=== PATIENT | male | born 1940 | race Caucasian/White ===

== ENCOUNTER 2018-07-05 19:00 | Inpatient (IN) | payer OTHER ==
[~2018-07-05] VITALS: Ht 175.3 cm; Wt 78.5 kg
[~2018-07-05 19:00] MED LIST: ALTACE 1.25 M1.25 M1 PO; AMARYL1 MG PO; ASPIRIN81 M2 PO; FENOFIBRATE160 MG; FINASTERIDE5 MG PO; FISH OIL 1,0001 EAC5 PO; GLIMEPIRIDE; GLUCOPHAGE500 MG PO; LOPRESSOR 50 MG50 M1 PO; LOVASTAT20; TUMS PO
[2018-07-05 19:06] VITALS: BP 181/88
[2018-07-05] MEDS ORDERED: GLIPIZIDE 10 MG10 MG PO (19:15)
[2018-07-05] MEDS ORDERED: ALTACE10 MG (19:15)
[2018-07-05] MEDS ORDERED: VITAMINC500 PO (19:16)
[2018-07-05] MEDS ORDERED: SIMVASTATIN40 MG PO (19:16)
[2018-07-05 19:42] LABS: ABSOLUTE EOSINOPHILS 0.2 thou/uL (0.0-0.7); ABSOLUTE LYMPHOCYTES 2.2 thou/uL (0.8-5.3); ABSOLUTE MONOCYTES 0.7 thou/uL (0.0-1.2); ABSOLUTE NEUTROPHILS 4.6 thou/uL (1.6-8.1); BASOPHILS 0.5 %; HEMATOCRIT 42.7 % (42.0-52.0); HEMOGLOBIN 14.2 gm/dL (14.0-18.0); LYMPHOCYTES 28.7 %; MCH 29.5 pg (26.0-34.0); MCHC 33.3 g/dL (28.0-37.0); MCV 88.5 fL (80.0-100.0); MONOCYTES 8.8 %; MPV 8.9 fl. (7.2-11.1); NUCLEATED RBCS 0 /100WBC; PLATELET COUNT* 127 thou/uL (150-400); RBC 4.83 mil/uL (4.50-6.00); RDW-CV 15.1 % (10.5-14.5); WBC 7.7 thou/uL (4.0-11.0)
[2018-07-05 19:47] LABS: CALCIUM 8.7 mg/dL (8.5-10.1); CREATININE 0.9 mg/dL (0.6-1.3); POTASSIUM 3.9 mmol/L (3.5-5.1)
[2018-07-05 19:49] LABS: PROTIME 10.7 Seconds (9.20-11.50)
[2018-07-05 19:57] LABS: ALBUMIN 3.3 g/dL (3.4-5.0); TOTAL BILIRUBIN 0.7 mg/dL (<0.1-1.0); TOTAL PROTEIN 6.8 g/dL (6.4-8.2); TROPONIN-I LEVEL 0.11 ng/mL (<0.06)
[2018-07-05 21:08] LABS: INFLUENZA A ANTIGEN None Detected (None Detect); INFLUENZA B ANTIGEN None Detected (None Detect)
[2018-07-05 21:58] LABS: URINE BILIRUBIN NEGATIVE (Negative); URINE BLOOD NEGATIVE (Negative); URINE CLARITY CLEAR; URINE COLOR YELLOW; URINE GLUCOSE-RANDOM NEGATIVE (Negative); URINE KETONES NEGATIVE (Negative); URINE LEUKOCYTES-REFLEX NEGATIVE (Negative); URINE NITRITE-REFLEX NEGATIVE (Negative); URINE PROTEIN NEGATIVE (Negative); URINE UROBILINOGEN 0.2 E.U./dl (0.2-1.0)
[2018-07-06] VITALS (7 sets, daily range): BP systolic 117–160; BP diastolic 66–82
--- NOTE | 2018-07-06 02:27 | NUR ---
PT ADMIT TO ROOM 204 AT 0010. ALERT ORIENTED. STAND AT BS TO VOID WITH ONE PERSON ASSIST. TELEMETRY SHOWS ST. NPO FOR CARDIOLOGY CONSULT. WILL CONTINUE TO MONITOR.
[2018-07-06] MEDS ORDERED: METFORMIN HCL500 MG PO (02:35)
[2018-07-06] MEDS ORDERED: ALEVE220 MG PO (02:39)
[2018-07-06 02:42] LABS: HEMATOCRIT 43.2 % (42.0-52.0); HEMOGLOBIN 14.2 gm/dL (14.0-18.0); MCH 29.7 pg (26.0-34.0); MCV 90.2 fL (80.0-100.0); MPV 9.4 fl. (7.2-11.1); RBC 4.79 mil/uL (4.50-6.00); WBC 6.5 thou/uL (4.0-11.0)
[2018-07-06] MEDS ORDERED: RAMIPRIL2.5 MG PO (02:42)
[2018-07-06] MEDS ORDERED: CINNAMON500 MG PO (02:44)
[2018-07-06] MEDS ORDERED: GARLIC1 EACH PO (02:45)
[2018-07-06 02:58] LABS: ALBUMIN 3.6 g/dL (3.4-5.0); CALCIUM 8.8 mg/dL (8.5-10.1); CREATININE 1.5 mg/dL (0.6-1.3); POTASSIUM 3.7 mmol/L (3.5-5.1); TOTAL BILIRUBIN 0.6 mg/dL (<0.1-1.0)
--- NOTE | 2018-07-06 04:41 | NUR ---
PT HAD HR 130. VSS. [address] METOPROLOL ORDERED.
--- NOTE | 2018-07-06 07:45 | NUR ---
RECIEVED REPORT. ASSUMED CARE OF PT AT 0730. VSS. CARDIAC MONITORING IN PLACE SR. AM ASSESMENT AND VITALS COMPELTED CHARTED. PT ALERT AND ORIENTED. PT ON 2L O2 WITH O2 SAT AT 95% PT REPORTS FEELING BETTER THIS AM. PT DENEIS ANY PAIN OR DISCOMFORT THIS AM. PT IS UP WITH STAND BY ASSITANCE. PT INFORMED OF PLAN OF CARE. CALL [facility] WITHIN REACH. WILL CONTINUE TO MOTNIOR FOR DURAITON OF SHFIT.
--- NOTE | 2018-07-06 11:21 | EKG ---
[place] [address] ELECTROCARDIOGRAM REPORT Name: NATALI RADFORD Room: [address] ADM IN M.R.#: [id number] Admission: 07/05/18 Attend Phys: Shelbi Siddiqi Discharge: Date of : 36 Report #: [id number] THIS REPORT FOR: //name// [facility] ED Test Date: 2018-07-05 Test Time: 19:15:44 Pat Name: NATALI RADFORD Department: Room: [facility] Gender: M Pulper: Belia GREEN : 1940 Requested By: Cammy Arango Order Number: [id number] MD: Pankaj Hayden Measurements Intervals [place] Rate: 91 P: 67 MS: 185 QRS: -5 QRSD: 105 T: 106 QT: 345 QTc: 425 Interpretive Statements Sinus rhythm Ventricular premature complex Anteroseptal infarct, old Borderline repolarization abnormality Compared to ECG 02/07/2012 04:27:36 Left ventricular hypertrophy no longer present Myocardial infarct finding still present Electronically Signed On 07-06-2018 11:21:27 ENVIRONMENTAL SAMPLER by Pankaj Hayden [email or web address] <ELECTRONICALLY SIGNED> By: Pankaj Hayden MD, FACC 07/06/18 1121 14 14 Pankaj Hayden MD, FACC /EPI
--- NOTE | 2018-07-06 11:22 | EKG ---
[place] [address] ELECTROCARDIOGRAM REPORT Name: NATALI RADFORD Room: [address] ADM IN M.R.#: [id number] Admission: 07/05/18 Attend Phys: Shelbi Siddiqi Discharge: Date of : 36 Report #: [id number] THIS REPORT FOR: //name// [facility] Test Date: 2018-07-06 Test Time: 04:19:38 Pat Name: NATALI RADFORD Department: Room: [address] Gender: M Manager Intermediate: I : 1940 Requested By: Bree Swan Order Number: [id number] Reading MD: Pankaj Hayden Measurements Intervals [place] Rate: 139 P: 107 ND: 104 QRS: -12 QRSD: 96 T: 111 QT: 301 QTc: 458 Interpretive Statements Sinus tachycardia with irregular rate Inferior infarct, old Lateral leads are also involved Baseline wander in lead(s) V2 Compared to ECG 02/07/2012 04:27:36 Sinus rhythm no longer present Ventricular premature complex(es) no longer present Left ventricular hypertrophy no longer present Myocardial infarct finding still present Electronically Signed On 07-06-2018 11:21:51 WOOD POLE TREATER by Pankaj Hayden [email or web address] <ELECTRONICALLY SIGNED> By: Pankaj Hayden MD, FACC 07/06/18 1121 0419 0419 Pankaj Hayden MD, FACC /EPI
--- NOTE | 2018-07-06 14:08 | NUR ---
NOTED CARDIOLOGY CONSULT NOTE IN PT'S CHART STATING PT WOULD MAYBE NEED STRESS TEST OR CATH BUT THERE ARE NO ORDERS FOR ANYTHING. PER PULMONARY DR. BACH, FEELS PT IS HAVING CHF EXCAERBATION AND PERFERS TO TRY AND DIURES PT VS THORACENTESIS AT THIS TIME. NO ORDERS FOR DIURETIC MEDICATIONS CURRENTLY. NOTIFIED CARDIOLOGY COPYRIGHT CLERK. WILL CONTINUE TO MOTNIOR.
--- NOTE | 2018-07-06 14:47 | 2DMMODE ---
[place] [address] 2 D/M-MODE ECHOCARDIOGRAM Name: NATALI RADFORD Room: [facility] IN [facility]#: [id number] Admission: 07/05/18 Attend Phys: Bree Swan Discharge: Date of : 36 Date of Service: 07/06/18 1446 Report #: [id number] THIS REPORT FOR: //name// APPROVED REPORT Study performed: 07/06/2018 11:04:27 EXAM: Comprehensive 2D, Doppler, and color-flow Echocardiogram Patient Location: In-Patient Room #: [facility] Status: routine BSA: 1.94 HR: 98 bpm BP: 117/66 mmHg Rhythm: NSR Other Information Study Quality: Good Indications Chest Pain 2D Dimensions IVSd: 12.41 (7-11mm) LVOT Diam: 20.70 (18-24mm) LVDd: 38.18 mm PWd: 13.24 (7-11mm) Ascending Ao: 32.68 (22-36mm) LVDs: 23.19 (25-40mm) Aortic Root: 34.19 mm Volumes Left Atrial Volume (Systole) LA ESV Index: 53.70 mL/m2 Aortic Valve AoV Peak Bola.: 3.54 m/s AO Peak Gr.: 50.02 mmHg LVOT Max P.11 mmHg AO Mean Gr.: 30.30 mmHg LVOT Mean P.23 mmHg LVOT Max V: 0.73 m/s AO V2 VTI: 77.01 cm LVOT Mean V: 0.52 m/s JESSA (VTI): 0.74 cm2 LVOT V1 VTI: 16.84 cm Mitral Valve E/A Ratio: 0.75 MV Decel. Time: 49.73 ms MV E Max Bola.: 0.72 m/[place] [address] 2 D/M-MODE ECHOCARDIOGRAM Name: NATALI RADFORD Room: [address] IN .R.#: [id number] Admission: 07/05/18 Attend Phys: Bree Swan Discharge: Date of : 36 Date of Service: 07/06/18 1446 Report #: [id number] MV PHT: 14.42 ms MVA (PHT): 15.26 cm2 TDI E/Lateral E': 4.80 E/Medial E': 5.54 Medial E' Bola.: 0.13 m/s Lateral E' Bola.: 0.15 m/s Pulmonary Valve PV Peak Bola.: 1.05 m/s PV Peak Gr.: 4.42 mmHg Tricuspid Valve RAP Estimate: 5.00 mmHg TR Peak Gr.: 26.55 mmHg RVSP: 31.00 mmHg PA Pressure: 31.00 mmHg Left Ventricle The left ventricle is normal size. Regional wall motion abnormalities are noted.Apical hypokineis is present. Mild concentric left ventricular hypertrophy. Left ventricular systolic function is normal. The left ventricular ejection fraction is within the normal range. No left ventricle thrombus noted on this study. LVEF is 55-60%. Grade I - abnormal relaxation pattern. Right Ventricle The right ventricle is normal size. The right ventricular systolic function is normal. Atria Left atrium is severely dilated. The right atrium size is normal. Aortic Valve Severe aortic valve sclerosis. No aortic regurgitation is present. Moderate aortic stenosis.Mean gradient 35mmhg Mitral Valve There is mitral annular calcification. Mild mitral regurgitation. No evidence of mitral valve stenosis. Tricuspid Valve The tricuspid valve is normal in structure. Mild tricuspid regurgitation. Mild pulmonary hypertension. Pulmonic Valve The pulmonary valve is normal in structure. There [place] [address] 2 D/M-MODE ECHOCARDIOGRAM Name: NATALI RADFORD Room: [address] IN [facility]#: [id number] Admission: 07/05/18 Attend Phys: Bree Swan Discharge: Date of : 36 Date of Service: 07/06/18 1446 Report #: [id number] valvular regurgitation. Great Vessels The aortic root is normal in size. IVC is normal in size and collapses >50% with inspiration. Pericardium There is no pericardial effusion. <Conclusion> LVEF is 55-60%. Regional wall motion abnormalities are noted.Apical hypokineis is present. Moderate aortic stenosis.Mean gradient 35mmhg Grade I - abnormal relaxation pattern. No evidence of mitral valve stenosis. Mild mitral regurgitation. <ELECTRONICALLY SIGNED> By: Pankaj Hayden MD, FACC 07/06/18 1446 1446 1446 Pankaj Hayden MD, FACC /INF
--- NOTE | 2018-07-06 15:20 | NUR ---
Pt is A&O. Resides at home with his and son. Independent. Pt has a prosthetic shoe. No home o2. Pt has a walker and cane that he can use as needed. Hx of CHCS. No hx of skilled. Goal is home at ok. Following.
[2018-07-06 15:43] LABS: CALCIUM 8.8 mg/dL (8.5-10.1); CREATININE 1.3 mg/dL (0.6-1.3)
--- NOTE | 2018-07-06 17:40 | NUR ---
VSS. CARDIAC MONTIORING IN PLACE SR/ST. PT SLIGHTLY PROGRESSING TOWARDS GOALS. PT REMAINS ON RA-2L ON STAND BY. PT HAS HAD COMPLAINTS OF INCREASED COUGH HE EXPLAINS IS WHAT BROUGHT HIM INTO THE HOSPITAL INITALLY. SPOKE WITH DR. URENA REGARDING SYMPTOMS AND NO LASIX OR DIURETICS ORDERED AND NO ELECTROLYTE PROTOCOL ORDERED. PER DR. URENA HOLDING OFF ON DIURETICS DUE TO PT'S KIDNEY FUNCTION INCREASED. COMMUNICATED THIS WITH PT BUT ENCOURAGED PT TO NOTIFY RN IF SYMPTOMS PERSIST/WORSEN. CARDIOLOGY ORDERED CARDIAC CATH IN AM. IVF TO START AT 0700. PT IS UP WITH STAND BY ASSITANCE. PT INFORMED OF PLAN OF CARE. CALL LIGHT IS WITHIN REACH. WILL CONTINUE TO MONITOR FOR DURAITON OF SHFIT.
[2018-07-06 22:32] LABS: CALCIUM 8.7 mg/dL (8.5-10.1); CREATININE 1.2 mg/dL (0.6-1.3); MAGNESIUM 1.8 mg/dL (1.8-2.4); POTASSIUM 3.9 mmol/L (3.5-5.1)
[2018-07-07] VITALS (11 sets, daily range): BP systolic 100–146; BP diastolic 53–81
--- NOTE | 2018-07-07 02:44 | NUR ---
PT CALLED OUT IN RESPIRATORY DISTRESS. O2 SATS IN THE 80S. SOB LABORED BREATHING. BREATH SOUNDS COURSE WITH CRACKLES. DR GREGG NOTIFIED. ORDERS FOR LASIX 60MG AND BIPAP. RT NOTIFIED OF BIPAP ORDERS.
[2018-07-07 06:14] LABS: ALBUMIN 3.6 g/dL (3.4-5.0); CALCIUM 9.4 mg/dL (8.5-10.1); CREATININE 1.1 mg/dL (0.6-1.3); MAGNESIUM 1.9 mg/dL (1.8-2.4); PHOSPHORUS* 4.7 mg/dL (2.5-4.9); POTASSIUM 3.9 mmol/L (3.5-5.1)
--- NOTE | 2018-07-07 06:49 | CON ---
[address] [address] CONSULTATION Name: NATALI RADFORD Room: [address] IN M.R.#: [id number] Admission: 07/05/18 Attend Phys: Shelbi Siddiqi Discharge: Date of : 36 Report #: [id number] THIS REPORT FOR: //name// CC: Weston Swan DATE OF SERVICE: 07/06/2018 CHIEF COMPLAINT: Shortness of breath, weakness. HISTORY OF PRESENT ILLNESS: The patient is an 78-year-old man who presents with approximately 1 week of heavy cough, minimally productive associated with dyspnea with exertion, orthopnea and mild PND. His ECG on presentation demonstrated a sinus rhythm with dynamic without dynamic ST segment abnormalities. His initial cardiac troponin level was essentially normal with a cardiac troponin level of 0.07. He has never really had these symptoms before, but he has noticed some increasing fatigue over the last several days. He has no associated symptoms of fevers, chills, weight gain or edema. He was given diuretics overnight and his symptoms have improved. He was also treated aggressively with nebulizers. CT scan of the chest was performed, which demonstrated no evidence of pulmonary embolus, but there is evidence of possible central pulmonary hypertension and pleural effusions which are mild to moderate only in size. He does have cardiomegaly noted. PAST MEDICAL HISTORY: Significant for peripheral vascular disease. 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 He has diabetes, hypertension, hyperlipidemia. He has no documented history of heart disease. He has osteoarthritis, sarcoidosis. HOME MEDICATIONS: Include metformin, finasteride, baby aspirin, glipizide 10 mg daily, Zocor 40 mg daily, ramipril 2.5 mg daily, and vitamin C. ALLERGIES: He has no known drug allergies. SOCIAL HISTORY: He is a nonsmoker. He is . REVIEW OF SYSTEMS: GENERAL: No fevers or chills. PULMONARY: Positive shortness of breath. Positive cough, [place] [address] CONSULTATION Name: NATALI RADFORD Room: [address] IN [facility]#: [id number] Admission: 07/05/18 Attend Phys: Shelbi Siddiqi Discharge: Date of : 38 Report #: [id number] CARDIOVASCULAR: Positive dyspnea. No chest pain. No palpitations. NEUROLOGIC: No syncope or seizures. HEMATOLOGIC: No anemia or bleeding disorders. RENAL: No documented history of kidney failure. He presents with renal insufficiency. NEUROLOGIC: There is no record of seizures, numbness, weakness or visual changes. PHYSICAL EXAMINATION: VITAL SIGNS: Blood pressure is 138/71 with a pulse of 97 in a sinus rhythm, temperature is 36.7, respiratory rate 16, O2 sat on 2 liters is 97%. GENERAL: This is a thin elderly male. He is in no apparent distress. HEENT: Eyes: EOMs intact. No facial asymmetry. NECK: Supple. No jugular venous distention. Upstrokes are normal. CARDIOVASCULAR: Regular, heart tones are distant. There is no rub or gallop. LUNGS: Diminished breath sounds. There are no rales. ABDOMEN: Soft, nontender. EXTREMITIES: There is no peripheral edema. MUSCULOSKELETAL: He has postoperative TMA amputation of his left foot. Femoral pulses are normal. Radial pulses are normal. LABORATORY DATA: Electrocardiogram shows sinus rhythm with borderline LVH, Q-waves in anterior precordial leads with poor R-wave progression. Troponin I is 0.07. AST 41, ALT is 47, BUN is 25, creatinine is 1.5. Sodium is 139, potassium is 3.7, chloride is 97. INR is 1.0. Hemoglobin is 14.2. IMPRESSION: 1. Respiratory insufficiency. Etiology of this could be related to underlying bronchitic process versus congestive heart failure, which based on the CT and x-ray findings is concerning. I would gently diurese him. We will check an echocardiogram to assess left ventricular function. If left ventricular function is reduced, he will need either stress testing or diagnostic heart catheterization. 2. Abnormal ECG. There is concern for underlying coronary disease. 3. Peripheral vascular disease. He has numerous cardiovascular risk factors as well. 4. Diabetes mellitus. 5. Acute diastolic congestive heart failure. <ELECTRONICALLY SIGNED> By: Damien Cain MD, FACC 07/07/18 0649 1140 0109Pankaj Hayden MD, FACC /nt
--- NOTE | 2018-07-07 06:53 | NUR ---
PT HAD TOTAL OF 1400ML URINE OUT. ORDERS FOR AM NS BOLUS AND IVF. DR BENTON NOTIFIED. NORMAL SALINE ORDERS DCD.
--- NOTE | 2018-07-07 07:43 | CON ---
[address] [address] CONSULTATION Name: NATALI RADFORD Room: [address] IN M.R.#: [id number] Admission: 07/05/18 Attend Phys: Shelbi Siddiqi Discharge: Date of : 36 Report #: [id number] THIS REPORT FOR: //name// CC: Weston Swan REASON FOR CONSULTATION: Respiratory failure and pleural effusion. HISTORY OF PRESENT ILLNESS: This is an 78-year-old male patient who never smoked before. He initially told me he does not have lung disease; however, when I asked about sarcoidosis, he said "Oh yea, I remember, I had sarcoidosis diagnosed back in the 80s." At that time, he underwent some sort of lung biopsy. He is not sure which form, but it was not an open lung biopsy. He was treated with prednisone for a few months, he is not sure about the duration and he was taken off since 1986. Since then, he had not been on any specific treatment for sarcoidosis. He denied having baseline shortness of breath, cough or symptoms related to sarcoidosis and according to him did not cause him any trouble all these years. Two weeks ago, he started having progressive shortness of breath, especially with exertion and also he reported that he now prefers to sleep on pillows, he gets more short of breath when he lies down. He did not have any fever. He did not have any chills. He did not have any sick contacts. He has no sputum production, although he has some cough. He had no nausea, no vomiting, no headache. No skin changes. He denied any lower extremity edema. He denied any chest pain. He denied any calf tenderness. His cough is so severe that it is causing him rib pain now. He is not known to have any history of congestive heart failure, not on any inhalers, not on any oxygen at home. Also, his and other family members at the bedside, they confirm the history of sarcoidosis, but did not know more details about it. PAST MEDICAL HISTORY: Sarcoidosis as mentioned above, history of hypertension, diabetes mellitus. PAST SURGICAL HISTORY: Bilateral shoulder replacement, left knee replacement, right hip replacement and toes amputation on the left lower extremity. HOME MEDICATIONS: He is on Glucophage, finasteride, aspirin, glipizide, ramipril. ALLERGIES: No known drug allergies. REVIEW OF SYSTEMS: CONSTITUTIONAL: He denied fever to me, although he reported that to admitting physician. He denied any chills. He denied any visual changes, eye pain or [place] [address] CONSULTATION Name: NATALI RADFORD Room: [address] IN M.R.#: [id number] Admission: 07/05/18 Attend Phys: Shelbi Siddiqi Discharge: Date of : 38 Report #: [id number] HEAD AND NECK: He denied any sore throat, nasal discharge, obstruction, postnasal drip. RESPIRATORY: As above. CARDIOVASCULAR: As above. GASTROINTESTINAL: He denied any abdominal pain, nausea, vomiting, diarrhea, change in bowel habits or bleeding from any orifice. GENITOURINARY: He denied any urgency, frequency, hematuria, burning with urination. MUSCULOSKELETAL: He denied any back pain, muscle pain, joint pain, calf tenderness. SKIN: He denied any rash or bruising. NEUROLOGIC: He denied any focal weakness. Denied any tingling. The rest of the review of system was negative. FAMILY HISTORY: Reviewed and nonpertinent to above chief complaint. SOCIAL HISTORY: Never smoked. Does not drink alcohol excessively, does not abuse drugs. PHYSICAL EXAMINATION: VITAL SIGNS: He had been on and off 2 liters oxygen, O2 saturation more than 90%. HEENT: Head normocephalic, atraumatic. Eyes, pupils reactive to light. Oral cavity, moist mucous membrane. External ears look healthy and normal. Nasal cavity patent passages, Mallampati of 2. NECK: Supple. No palpable lymph node. No palpable thyroid. Trachea is central. CHEST: Diminished air movement at the bases. No definite wheezes, no crackles. Symmetrical expansion, nontender. HEART: S1, S2. Faint systolic murmur at left sternal border. ABDOMEN: Benign, lax, nontender, positive bowel sounds. No masses felt. EXTREMITIES: Lower extremity, no edema, no calf tenderness. PSYCHIATRIC: Mood and affect appropriate. Good insight and judgment, slightly anxious. LYMPHATICS: No palpable lymph node. SKIN: Normal for age and race. No rash. LABORATORY DATA: His chest x-ray in the ER showed cardiomegaly with signs of vascular congestion. His CT of the chest did not show PE, showed bilateral pleural effusion with signs of vascular congestion. His white blood count 7.7, hemoglobin 14.2 and platelets of 127. His INR is 1. His creatinine was 0.9, although it is 1.9 this morning. His bicarbonate is 21, chloride of 97. His BNP also was elevated. IMPRESSION: 1. Acute [place] [address] CONSULTATION Name: NATALI RADFORD Room: [address] [facility] IN [facility].#: [id number] Admission: 07/05/18 Attend Phys: Shelbi Siddiqi Discharge: Date of : 36 Report #: [id number] 2. Fluid overload. 3. Pulmonary edema. 4. Bilateral pleural effusion. 5. History of sarcoidosis. The last time he received any treatment was back in the 1980s. The patient with progressive shortness of breath of 2 weeks. It is less likely that it is related to sarcoidosis. The clinical picture is highly consistent with congestive heart failure and pulmonary edema with bilateral pleural effusion and signs of vascular congestion. Unfortunately, he developed acute renal failure with diuresis. No definite consolidation or pneumonia on the chest x-ray or the CT scan, there is some area of atelectasis, most likely compressive atelectasis from pleural effusion. At this point, I would not recommend specific treatment for sarcoidosis. Awaiting Cardiology inputs. He just had an echocardiogram. I do not have the report of the echocardiogram. Nephrology and Cardiology on the case. I would continue weaning his oxygen down. Discussed with the patient and his family in details. Of note, regarding the bilateral pleural effusion, would recommend medical therapy at this point, trying to diurese the patient. However, if he fails to respond to diuresis or his renal function gets worse, may consider temporary relief by thoracentesis. For now, we will hold on the thoracentesis. We will consider repeat imaging in a couple of days. Thank you for the consult. We will follow along with you. <ELECTRONICALLY SIGNED> By: Nicole Reyna MD 07/07/18 0743 1356 [id number] Childs MD /nt
--- NOTE | 2018-07-07 11:51 | CON ---
[address] [address] CONSULTATION Name: NATALI RADFORD Room: [address] IN M.R.#: [id number] Admission: 07/05/18 Attend Phys: Shelbi Siddiqi Discharge: Date of : 38 Report #: [id number] THIS REPORT FOR: //name// CC: Weston Swan DATE OF SERVICE: 07/06/2018 INFECTIOUS DISEASE CONSULTATION ATTENDING PHYSICIAN: Dr. Swan. REASON FOR EVALUATION: Lower respiratory tract infection. HISTORY OF PRESENT ILLNESS: Chart reviewed, patient examined. This is an 78-year-old gentleman with known diabetes mellitus type 2 complicated by vasculopathy, has sarcoidosis as well who was admitted with shortness of breath with associated cough that was wet and was unable to clear secretions. Noted onset for last couple of weeks; however, worsened over the last 3 days. It became difficult terms of dyspneic with minimal exertion. His blood sugars were elevated as well. He denies fevers. Does have some shakes. Denied any significant anorexia. No sinus complaints, no sore throat, no dental pain. Denied any gastrointestinal related complaints including nausea, vomiting, diarrhea, abdominal pain, generalized myalgias, arthralgias, new onset eruptions. He was given a dose of azithromycin. At this point, he is on room air oxygen. Imaging raised question of some bilateral pleural effusions with some infiltrates. ALLERGIES: None known. MEDICATIONS: Include insulin, metoprolol, ipratropium and albuterol inhalers. He was given a dose of azithromycin as well, ceftriaxone. PAST MEDICAL HISTORY: As described above, diabetes mellitus, hypertension, sarcoidosis. PAST SURGICAL HISTORY: Left knee replacement, right hip replacement, bilateral shoulder replacements. SOCIAL HISTORY: Nonsmoker, no ethanol. FAMILY HISTORY: Noncontributory. REVIEW OF SYSTEMS: A 10-point review of systems is unremarkable with the exception [place] [address] CONSULTATION Name: RADFORDNATALI BECK Room: [address] IN [facility]#: [id number] Admission: 07/05/18 Attend Phys: Shelbi Siddiqi Discharge: Date of : 38 Report #: [id number] PHYSICAL EXAMINATION: GENERAL: He is in [id number] distress. Does have intermittent coughing. It is nonproductive, appears somewhat undernourished, chronically ill appearing. VITAL SIGNS: Temperature 98.1, pulse 87, respirations 16, blood pressure 138/71. SKIN: Warm, dry, no rashes. HEENT: Unremarkable. NECK: Supple. LUNGS: Few scattered crackles at the bases posteriorly. HEART: Regular. Borderline tachycardic. I do not appreciate murmur. ABDOMEN: Soft, nontender, nondistended. There is no organomegaly. No peritoneal signs. GENITOURINARY AND RECTAL: Deferred. LABORATORY DATA: Electrolytes: Sodium 139, potassium 3.7, chloride 97, bicarbonate is 21, anion gap of 21, BUN and creatinine 25 and 1.5, glucose of 396. AST of 41, ALT of 47. Albumin is 3.6. Total protein 7.0. Estimated GFR 45. CBC: White count of 6.5, H and H 14.2 and 43.2, platelets of 115. Urinalysis unremarkable. CTA chest PE protocol, no evidence of PE or aortic dissection, mild to moderate sized bilateral pleural effusions with vascular congestion, cardiomegaly, likely congestive heart failure, bibasilar atelectasis without consolidation. Influenza antigen was negative. ASSESSMENT: Dyspnea with associated nonproductive cough. I think the way the evidence probably favors for excess fluid on the basis of congestive heart failure and/or pulmonary edema noted, there is consideration of possible aspiration. I think that would be perhaps helpful both from the diagnostic as well as therapeutic. We will withhold any further antibiotics at this point. Should have antibiotics on board for the next 24 hours to see how he does clinically with diuresis and multifocal approach. <ELECTRONICALLY SIGNED> By: Jonathon Ruano MD 07/07/18 1151 1244 0245Jotila Ruano MD /nt
[2018-07-07 13:41] LABS: BE 1.5 mmol/L (-2 to +3); HCO3 25.7 mmol/L (22.0-26.0); PCO2 VENOUS 39.3 mmHg (41.0-51.0)
[2018-07-07 13:42] LABS: PO2 VENOUS 31.6 mmHg (35.0-45.0)
[2018-07-07 13:43] LABS: BE 1.5 mmol/L (-2 to +3); HCO3 24.2 mmol/L (22.0-26.0); PCO2 33.1 mmHg (35.0-45.0); pH 7.482 (7.340-7.450)
[2018-07-07 13:46] LABS: PO2 58.9 mmHg (75.0-100.0)
--- NOTE | 2018-07-07 17:44 | EKG ---
[place] [address] ELECTROCARDIOGRAM REPORT Name: NATALI RADFORD Room: [address] ADM IN M.R.#: [id number] Admission: 07/05/18 Attend Phys: Shelbi Siddiqi Discharge: Date of : 36 Report #: [id number] THIS REPORT FOR: //name// [facility] Test Date: 2018-07-07 Test Time: 16:14:12 Pat Name: NATALI RADFORD Department: Room: [address] Gender: M Steel Plate Caulker: GENNY : 1940 Requested By: Bill Munson Order Number: [id number] Aaliyah MD: Bill Munson Measurements Intervals [place] Rate: 73 P: 26 SC: 208 QRS: -23 QRSD: 98 T: 83 QT: 529 QTc: 583 Interpretive Statements Sinus rhythm Probable left atrial enlargement Inferior infarct, old Prolonged QT interval Compared to ECG 07/06/2018 04:19:38 atrial fibrillation no longer seen Electronically Signed On 07-07-2018 17:44:16 MEDICAL BILLING AND CODING SPECIALIST by Bill Munson [email or web address] <ELECTRONICALLY SIGNED> By: Bill Munson MD, [facility] 07/07/18 1744 1614 1614 Bill Munson MD, [facility] /EPI
--- NOTE | 2018-07-07 18:40 | NUR ---
ASSUMED CARE OF PT AT 0730. PT REMAINS A&O X4 CALM AND COOPERATIVE. PT HAD A CARDIAC CATH THIS AFTERNOON. HE LEFT THE FLOOR AT 1215 AND RETURNED AT 1545. INSERTION SITE TO RIGHT GROIN IS SUPPLE AND HAS NO DRAINAGE. PT WOKE UP AND WAS CONFUSED AND PULLED HI IV OUT. THIS NURSE PLACE A NEW 22G IN HIS LEFT HAND. POST CATH VS DOCUMENTED AND HAVE BEEN STABLE WNL. PT HAS HAD NO C/O PAIN OR DISTRESS. NURSING WILL CONTINUE TO MONITOR.
[2018-07-08] VITALS: BP 130/55
[2018-07-08 04:00] VITALS: BP 142/67
[2018-07-08 04:34] LABS: HEMATOCRIT 40.5 % (42.0-52.0); HEMOGLOBIN 13.4 gm/dL (14.0-18.0); MCH 29.5 pg (26.0-34.0); MCHC 33.1 g/dL (28.0-37.0); MCV 89.3 fL (80.0-100.0); MPV 9.3 fl. (7.2-11.1); RBC 4.53 mil/uL (4.50-6.00); RDW-CV 15.2 % (10.5-14.5); WBC 10.8 thou/uL (4.0-11.0)
[2018-07-08 04:51] LABS: ANION GAP 9 mmol/L (7-16); BUN 39 mg/dL (7-18); CALCIUM 8.2 mg/dL (8.5-10.1); CHLORIDE 103 mmol/L (98-107); CHOLESTEROL 143 mg/dL (<200); CO2 27 mmol/L (21-32); GLUCOSE 213 mg/dL (70-99); HDL CHOLESTEROL 49 mg/dL (>40); LDL CHOLESTEROL 67 mg/dL (<100); POTASSIUM 4.8 mmol/L (3.5-5.1); SODIUM 139 mmol/L (136-145); TC:HDL 2.9 Ratio (Not establshd); TRIGLYCERIDE 136 mg/dL (<150); VLDL 27 mg/dL (<40)
[2018-07-08 04:56] LABS: SERUM ASSESSMENT CLEAR
--- NOTE | 2018-07-08 06:17 | NUR ---
ASSUMED PT CARE AT 1915 REPORT RECEIVED FROM NURSE. PT IS ALERT, AWAKE ORINETED 4 . VSS , NO PAIN .FAMILY MEMBER AT THE BEDISIDE AND THEY ARE REALLY INVOLVED. PT IS POST CATH AND MYNX IN RIGHT GROIN AREA IS CLEAR, INTACT.NO SWELLING OR PAIN . NICOLE IN PLACE. IV FLUID INFUSING AT 125 PER HOUR ORDERED. PT IS SUPPOSED TO BE ON BEDREST UNTIL 2200 WHICH HAD BEEN FOLLOWED. PT SLEPT WELL DURING NIGHT. MEDICATIONS RECEIVED. GREG CONTINUE TO MONITOR.
[2018-07-08 07:40] VITALS: BP 148/97
--- NOTE | 2018-07-08 09:53 | CON ---
[address] [address] CONSULTATION Name: NATALI RADFORD Room: [address] ADM IN M.R.#: [id number] Admission: 07/05/18 Attend Phys: Shelbi Siddiqi Discharge: Date of : 36 Report #: [id number] THIS REPORT FOR: //name// CC: Weston Swan CONSULTING PHYSICIAN: Dr. Swan. REASON FOR CONSULTATION: Acute kidney injury. 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 He tells he has been getting worse over the past 2 weeks, particularly in the last week he had some productive cough and reports some mild fever at home. He denies any nausea, vomiting or diarrhea. He takes Aleve twice a day and has been doing so for many years for osteoarthritis. He received CT scan of the chest PE protocol with contrast and received Lasix. His admission creatinine was 0.9. It bumped up to 1.5 prompting renal consult. He has no present complaints. He is not requiring any oxygen and he appears to be comfortable. REVIEW OF SYSTEMS: Constitutional, psych, heme, eyes, ENT, respiratory, cardiac, GI, , endocrine, all negative except as documented above. PAST MEDICAL HISTORY: Diabetes, hypertension, history of sarcoidosis reported, history of knee and hip and shoulder replacements. FAMILY HISTORY: No known kidney disease. SOCIAL HISTORY: No tobacco. MEDICATIONS: Reviewed. PHYSICAL EXAMINATION: VITAL SIGNS: Blood pressure is 117/66, pulse 96, temperature 36.6, respirations 22. GENERAL: No acute distress. EYES: Extraocular movements intact. EARS: Externally normal. CARDIOVASCULAR: Regular rate. LUNGS: Diminished breath sounds. ABDOMEN: Soft. MUSCULOSKELETAL: Nontender. PSYCHIATRIC: Awake, alert. LABORATORY DATA: White cell count 6.5, hemoglobin 14.2, platelets 115. Sodium 139, potassium 3.7, chloride 97, bicarbonate 21, BUN 25, creatinine 1.5, [place] [address] CONSULTATION Name: NATALI RADFORD Room: [address] IN [facility]#: [id number] Admission: 07/05/18 Attend Phys: Shelbi Siddiqi Discharge: Date of : 36 Report #: [id number], calcium 8.8, albumin 3.6. ASSESSMENT AND PLAN: 1. Acute kidney injury with admission creatinine of 0.9 up to 1.5 on July 06 in the setting of CTA with 100 mL of contrast, Lasix for pulmonary edema and Aleve twice a day, chronic use while also on ramipril for his high blood pressure. He likely also has pulmonary hypertension suggested by CT scan. UA was okay. Albumin is 3.6. 2. Pulmonary edema. 3. Diabetes. 4. Hypertension. 5. Suspected pulmonary hypertension as described on CT report. PLAN: 1. Echocardiogram has been ordered. This will help determine whether he has any element of reduced systolic function and pulmonary hypertension. 2. He is not requiring any oxygen now. He should not require any further Lasix. Expect renal function will improve without any further doses of Lasix and without any further contrast for NSAIDs. We will follow closely and check labs again in the a.m. Thank you for requesting my opinion in the care and management of this patient. <ELECTRONICALLY SIGNED> By: Tami Mcrae MD 07/08/18 0953 1114 0054Abiludwig Mcrae MD /nt
[2018-07-08 12:00] VITALS: BP 142/66
--- NOTE | 2018-07-08 14:19 | CARD ---
[address] [address] CARDIAC CATH REPORT Name: NATALI RADFORD Room: [address] IN .R.#: [id number] Admission: 07/05/18 Attend Phys: Shelbi Siddiqi Discharge: Date of : 38 Report #: [id number] THIS REPORT FOR: //name// APPROVED REPORT Study performed: 07/07/2018 12:07:40 Patient Details Patient Status: In-Patient Room #: 212 The patient is a 78 year-old male Event Personnel Bill Munson Data Specialist, Yvrose Baltazar RN Warehouse Consultant, Ni Christine Monitor, Evelio Porter Scrub Procedures Performed Art Access - R femoral artery* Ti Access - R femoral vein Right and Left Heart Cath w/or w/o Coronarie [id number] [facility] [address] Place w/wo Plasty Single LAD [id number] Indication Dyspnea, Unstable angina Risk Factors Peripheral Vascular Disease, Hypercholesterolemia, Hypertension Previous Procedures/Diagnoses Previous Vascular Surgery Admission/Lab Medications/Medications given during procedure Glycoprotein IllbIlla Inhibitors, Heparin Unfract. Procedure Narrative The patient was brought electively to the Cardiac Catheterization Laboratory and was prepped and draped in a sterile manner. The right femoral was infiltrated with 2% Lidocaine subcutaneous anesthesia. A Right Heart Catheterization was performed with a 7 Fr. [place]-Mario catheter and pressure were recorded. Cardiac outputs were obtained by the Thermal Dilution method. A 7Fr x 11cm Rachel sheath was inserted into the right femoral artery. Coronary angiography was performed using coronary diagnostic catheters. The right coronary system was accessed and visualized with a 6fr JR 4 catheter. The left coronary system was accessed and visualized with a 6fr JL 4 [place] [address] CARDIAC CATH REPORT Name: NATALI RADFORD Room: [address]#: [id number] Admission: 07/05/18 Attend Phys: Shelbi Siddiqi Discharge: Date of : 38 Report #: [id number] ventricle was accessed and visualized with a 6fr Dual pigtail catheter. Left ventricular/Aortic Valve gradient assessed via catheter pullback. Left ventriculogram was performed in NUNES projection. An aortogram of the ascending aorta was performed. Closure device was deployed with a 6 Fr MynxGrip 6/7F. A hematoma occurred. 7 ethiopian sheath was placed in the right femoral artery. Hematoma that occured after placing the Mynx on the femoral artery was compressed with prolonged manual pressure. Mynx was also placed in the femoral vein. Aortic root injection was performed with a pigtail catheter. Aortic valve was crossed with a glidewire, and a dual lumen pigtail catheter used to measure aortic vavle gradient. Intraoperative Conscious Sedation Sedation start time: 13:09 Case end Time: 15:30 Fentanyl 75 mcg Versed 1 mg Fluoro Time: 11.2 minutes Dose: DAP 370148 cGycm2 1506.86 mGy Contrast Type and Amount: Omnipaque 210 ml Coronary Angiography The patient's coronary anatomy is right dominant. Diagnostic Cath Left Main 50% distal stenosis LAD 90% mid stenosis and apical LAD was chronically occluded and fillled by bridging collaterals Diagonal 1 80% proximal stenosis Circumflex 50% ostial stenosis OM3 70% proximal stenosis Right Coronary 50% proximal and 40% mid stenosis Left Ventriculography The left ventricular ejection fraction is estimated to be 40-45%. Left ventricular wall motion abnormalities are present. There is no mitral insufficiency. No aortic insufficiency noted. Apical akinesis noted. Hemodynamics The right atrial mean pressure is 5 mmHg. The right ventricular pressure is 32/6 mmHg. The pulmonary artery pressure is 29/12 mmHg with a mean of 19 mmHg. The mean pulmonary capillary wedge pressure is 12 mmHg. The aortic pressure is 126/64 mmHg with a mean of 88 mmHg. The left ventricular pressure is 161/12 mmHg [place] [address] CARDIAC CATH REPORT Name: NATALI RADFORD Room: [address] IN [facility]#: [id number] Admission: 07/05/18 Attend Phys: Shelbi Siddiqi Discharge: Date of : 38 Report #: [id number]. The left ventricular end diastolic pressure is 14 mmHg. Pullback from the left ventricle to the aorta revealed a 30 mm gradient across the aortic valve. PaO2 saturation is 62.80 %. Arterial saturation is 92.50 %. The cardiac output using thermo method is 4.22 L/min. The cardiac index using thermo method is 2.18 L/min/m2. The peak gradient across the aortic valve is 30 mmHg. The mean aortic valve gradient is 35.63 mmHg. The aortic valve area is 0.8 cm2. PCI Technique Lesion Anticoagulation was achieved with Heparin. iv aggrastat given Patient was preloaded with Plavix. Percutaneous coronary intervention was performed on the mid left anterior descending artery segment. The lesion stenosis prior to intervention was 90% with FRIEDA 3 flow. A 6F XB LAD 3.5 Guide Catheter was used to engage the ostium. A IG: BMW 190cm Interventional Guidewire was used to cross the lesion. BALLOON DILATION A Balloon catheter Trek RX 2.5 X 8 was inserted and inflated up to 8.00atm for 15seconds. Repeat angiography revealed the following post-dilatation results: 40% stenosis. STENT DEPLOYMENT A drug-eluting stent Xience Eloisa 2.37C11hb was inserted and inflated up to 8.00atm for 9seconds. Repeat angiography revealed the following post-stent deployment results: 0% stenosis. Additional Inflation: 16.00atm for 14seconds. Final angiography reveals 0 % stenosis with FRIEDA 3 flow. Conclusion 1. ef 40-45% with apical akinesis 2. moderate aortic stenosis 3. 90% mid lad which was chronically occluded distally 4. 80% 1st diagonal stenosis, and 70% 3rd marginal stenosis 5. successful placement of a stent in the mid lad Recommendations Cardiac Rehabilitation Referral [facility] [address] [address] CARDIAC CATH REPORT Name: NATALI RADFORD Room: [address] IN M.R.#: [id number] Admission: 07/05/18 Attend Phys: Shelbi Siddiqi Discharge: Date of : 38 Report #: [id number] Medications Administered Clopidogrel <ELECTRONICALLY SIGNED> By: Bill Munson MD, FACC 07/08/18 1419 141 1419Dajack Munson MD, FACC /INF
[2018-07-08 16:50] VITALS: BP 148/65
--- NOTE | 2018-07-08 17:30 | EKG ---
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1940 Requested By: Bill Munson Order Number: [id number] Aaliyah MD: Damien Cain Measurements Intervals [place] Rate: 70 P: 40 ND: 196 QRS: -20 QRSD: 101 T: 119 QT: 504 QTc: 544 Interpretive Statements Sinus rhythm Borderline left axis deviation Borderline repolarization abnormality Prolonged QT interval Compared to ECG 07/07/2018 16:14:12 Myocardial infarct finding no longer present Electronically Signed On 07-08-2018 17:29:56 PROGRAM DIRECTOR/AIR PERSONALITY by Damien Cain [email or web address] <ELECTRONICALLY SIGNED> By: Damien Cain MD, FACC 07/08/18 1729 5 5 Damien Cain MD, [facility] /EPI
--- NOTE | 2018-07-08 17:44 | NUR ---
ASSESSMENT COMPLETED REFER TO COMPUTER CHARTING. BILINGUAL RESEARCH INTERVIEWER TRACKING SR. PATIENT RESTING IN BED REPORTING NO PAIN, NAUSEA OR SHORTNESS OF AIR. BED IN LOW AND LOCKED POSITION. CALL LIGHT WITHIN REACH. FAMILY AT BEDSIDE. IV SALINE LOCKED. ON 2 LITERS VIA NASAL CANNULA. WILL CONTINUE TO MONITOR THIS SHIFT.
[2018-07-08 20:00] VITALS: BP 133/55
[2018-07-09] VITALS: BP 133/67
--- NOTE | 2018-07-09 03:08 | NUR ---
PATIENT RESTED IN BED, NO ACUTE CHANGES. PATIENT DID NOT SHOW SIGNS OF SOA. PATIENT DID NOT SHOW SIGNS OF DISTRESS. FALL PRECAUTIONS IN PLACE, CALL LIGHT WITH IN REACH, HOURLY ROUNDING OBSERVED. PATIENT DID NOT COMPLAIN OF CHEST PAIN.
[2018-07-09 04:00] VITALS: BP 117/67
[2018-07-09 08:18] VITALS: BP 121/48
[2018-07-09] MEDS ORDERED: VENTOLIN HFA INH8 GM INH (08:39)
[2018-07-09] MEDS ORDERED: CEFUROXIME500 MG PO (08:39)
[2018-07-09] MEDS ORDERED: BENZONATATE100 MG PO (08:39)
[2018-07-09] MEDS ORDERED: SORINE 80 MG TA80 M1 PO (08:39)
[2018-07-09] MEDS ORDERED: PREDNISONE 10 M10 MG PO (08:39)
[2018-07-09] MEDS ORDERED: CLOPIDOGREL75 MG PO (08:46)
[2018-07-09] MEDS ORDERED: NITROGLYCERIN0.4 MG SUBLING (11:41)
[2018-07-09 12:33] VITALS: BP 136/66
--- NOTE | 2018-07-09 15:13 | EKG ---
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1940 Requested By: Bill Munson Order Number: [id number] Aaliyah MD: Bill Munson Measurements Intervals [place] Rate: 67 P: 39 SD: 199 QRS: 4 QRSD: 101 T: -65 QT: 531 QTc: 561 Interpretive Statements Sinus rhythm Borderline repol abnormality, diffuse leads Prolonged QT interval Compared to ECG 07/08/2018 08:16:32 No significant changes Electronically Signed On 07-09-2018 15:12:52 BRANCH COORDINATOR by Bill Munson [email or web address] <ELECTRONICALLY SIGNED> By: Bill Munson MD, [facility] 07/09/18 1512 1303 1303 Bill Munson MD, [facility] /EPI
== END 2018-07-09 13:17 | disposition home or self-care (01) | DRG 246 ==
LOC: M.ERS 19:00 → M.TBA-ER 20:57 → M.2W 20:57
PROVIDERS: Emergency Medicine; Internal Medicine; Internal Medicine Cardiovascular Disease; Internal Medicine Nephrology; ADMIT Internal Medicine
DX: I21.A1 Myocardial infarction type 2 (principal); I50.31 Acute diastolic (congestive) heart failure; J96.01 Acute respiratory failure with hypoxia; J18.9 Pneumonia, unspecified organism; N17.9 Acute kidney failure, unspecified; I25.110 Atherosclerotic heart disease of native coronary artery with unstable angina pectoris; Z96.641 Presence of right artificial hip joint; Z96.652 Presence of left artificial knee joint; Z96.612 Presence of left artificial shoulder joint; Z96.611 Presence of right artificial shoulder joint; E87.70 Fluid overload, unspecified; E11.51 Type 2 diabetes mellitus with diabetic peripheral angiopathy without gangrene; E78.5 Hyperlipidemia, unspecified; M19.90 Unspecified osteoarthritis, unspecified site; I35.0 Nonrheumatic aortic (valve) stenosis; I11.0 Hypertensive heart disease with heart failure; J20.8 Acute bronchitis due to other specified organisms; J45.909 Unspecified asthma, uncomplicated; I65.29 Occlusion and stenosis of unspecified carotid artery; Z89.432 Acquired absence of left foot; Z79.899 Other long term (current) drug therapy

== ENCOUNTER → 2018-08-03 | Outpatient (CLI) | payer OTHER ==
[~2018-08-03] MED LIST changes: +ALEVE220 MG PO; +ALTACE10 MG; +BENZONATATE100 MG PO; +CEFUROXIME500 MG PO; +CINNAMON500 MG PO; +CLOPIDOGREL75 MG PO; +GARLIC1 EACH PO; +GLIPIZIDE 10 MG10 MG PO; +METFORMIN HCL500 MG PO; +NITROGLYCERIN0.4 MG SUBLING; +PREDNISONE 10 M10 MG PO; +RAMIPRIL2.5 MG PO; +SIMVASTATIN40 MG PO; +SORINE 80 MG TA80 M1 PO; +VENTOLIN HFA INH8 GM INH; +VITAMINC500 PO
== END ==
LOC: M.CT 09:30
DX: I65.23 Occlusion and stenosis of bilateral carotid arteries (principal)

== ENCOUNTER 2018-08-22 21:10 | Emergency (ER) | payer OTHER ==
[~2018-08-22] VITALS: Ht 175.3 cm; Wt 74.8 kg
[2018-08-22 21:40] LABS: ABSOLUTE EOSINOPHILS 0.1 thou/uL (0.0-0.7); ABSOLUTE LYMPHOCYTES 1.8 thou/uL (0.8-5.3); ABSOLUTE MONOCYTES 0.6 thou/uL (0.0-1.2); ABSOLUTE NEUTROPHILS 3.6 thou/uL (1.6-8.1); BASOPHILS 0.4 %; EOSINOPHILS 2.3 %; HEMATOCRIT 37.6 % (42.0-52.0); HEMOGLOBIN 12.6 gm/dL (14.0-18.0); LYMPHOCYTES 29.1 %; MCH 30.1 pg (26.0-34.0); MCHC 33.6 g/dL (28.0-37.0); MCV 89.6 fL (80.0-100.0); MONOCYTES 9.2 %; MPV 8.8 fl. (7.2-11.1); NUCLEATED RBCS 0 /100WBC; PLATELET COUNT* 110 thou/uL (150-400); RBC 4.19 mil/uL (4.50-6.00); RDW-CV 15.3 % (10.5-14.5); WBC 6.1 thou/uL (4.0-11.0)
[2018-08-22 21:50] LABS: CALCIUM 8.6 mg/dL (8.5-10.1); CREATININE 1.1 mg/dL (0.6-1.3); POTASSIUM 3.9 mmol/L (3.5-5.1)
[2018-08-22 22:01] LABS: ALBUMIN 3.3 g/dL (3.4-5.0); MAGNESIUM 1.6 mg/dL (1.8-2.4); TOTAL BILIRUBIN 0.4 mg/dL (<0.1-1.0); TOTAL PROTEIN 6.6 g/dL (6.4-8.2); TROPONIN-I LEVEL 0.08 ng/mL (<0.06)
[2018-08-23] MEDS ORDERED: LASIX 40 MG TAB40 M2 PO (00:03)
[2018-08-23] MEDS ORDERED: KLOR-CON 1010 MEQ PO (00:03)
[2018-08-23] MEDS ORDERED: MEDROLDOSEPACK PO (00:03)
[2018-08-23 00:15] VITALS: BP 156/71
[2018-08-23 01:34] LABS: INFLUENZA A ANTIGEN None Detected (None Detect); INFLUENZA B ANTIGEN None Detected (None Detect)
--- NOTE | 2018-08-23 12:48 | EKG ---
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1940 Requested By: Shanita Worley Order Number: [id number] MD: Damien Cain Measurements Intervals [place] Rate: 76 P: 6 [place]: 174 QRS: -20 QRSD: 94 T: 77 QT: 449 QTc: 505 Interpretive Statements Sinus rhythm Borderline left axis deviation Borderline repolarization abnormality Prolonged QT interval Compared to ECG 07/09/2018 13:03:09 No significant changes Electronically Signed On 08-23-2018 12:47:47 ELEMENTARY SUPERVISOR by Damien Cain [email or web address] <ELECTRONICALLY SIGNED> By: Damien Cain MD, [facility] 08/23/18 1247 14 Damien Cain MD, FACC /EPI
== END 2018-08-23 00:15 | disposition home or self-care (01) ==
LOC: M.ERS 21:10
PROVIDERS: Nurse Practitioner Family
DX: I11.0 Hypertensive heart disease with heart failure (principal); I50.9 Heart failure, unspecified; J20.9 Acute bronchitis, unspecified; E11.9 Type 2 diabetes mellitus without complications; Z96.652 Presence of left artificial knee joint; Z96.642 Presence of left artificial hip joint

== ENCOUNTER 2018-08-31 07:10 | Inpatient (IN) | payer OTHER ==
[~2018-08-31] VITALS: Ht 152.4 cm; Wt 83.0 kg
[2018-08-31] VITALS (10 sets, daily range): BP systolic 100–147; BP diastolic 40–77
[~2018-08-31 07:10] MED LIST changes: +KLOR-CON 1010 MEQ PO; +LASIX 40 MG TAB40 M2 PO; +MEDROLDOSEPACK PO
--- NOTE | 2018-08-31 18:28 | NUR ---
PATIENT ADMITTED TO THE ICU AT 1730. AOX4. PLEASANT. COOPERATIVE. FAMILY AT BEDSIDE. ADMISSION HISTORY AND ASSESSMENT COMPLETED. RATES PAIN AT A 3-4/1O IN NECK, WHICH IS ACHY. DENIES THE NEEDS FOR PAIN MEDICATION. DENIES NAUSEA/SOB. INCISION TO RIGHT SIDE OF NECK CLOSED WITH DERMABOND. MINOR SWELLING TO TOP PORTION NOTED, BRUISING. TRACING NSR ON AVICULTURIST. TRANSFERED TO UNIT ON NEOSYNEPHRINE. DISCONTINUED AT 1800. MAINTAINING NORMAL SYSTOLIC/MAP. PATIENT GIVEN CLEAR LIQUID TRAY. DENIES FURTHER NEEDS FROM NURSING AT THIS TIME.
--- NOTE | 2018-09-01 03:50 | NUR ---
ARTERIAL LINE DC'D AT THIS TIME. NO HEMATOMA, PRESSURE HELD X10 MINUTES. PT. NEEDS TO HAVE BOWEL MOVEMENT, UP TO BEDSIDE COMMODE STAND BY ASSIST. WILL CONTINUE TO MONITOR.
[2018-09-01 04:00] VITALS: BP 104/52
[2018-09-01 05:00] VITALS: BP 107/49
[2018-09-01 06:01] VITALS: BP 84/55
--- NOTE | 2018-09-01 06:29 | NUR ---
PT. PROGRESSING TOWARDS GOALS. BP'S REMAIN STABLE, ART LINE DC'D. UP TO BEDSIDE COMMODE STAND BY ASSIST. ADEQUATE URINE OUTPUT. HAS DENIED PAIN THROUGHOUT SHIFT. SINUS RHYTHM/BRADYCARDIC AT TIMES. PROGRESSING TOWARDS DISCHARGE GOALS, WILL CONTINUE TO MONITOR.
--- NOTE | 2018-09-01 07:47 | OP ---
[facility] [address] [place] [address] OPERATIVE REPORT Name: NATALI RADFORD Room: [address] IN M.R.#: [id number] Admission: 08/31/18 Attend Phys: Miranda Brown Discharge: Date of : 38 Report #: [id number] THIS REPORT FOR: //name// CC: Pop Sim DATE OF SERVICE: 08/31/2018 PREOPERATIVE DIAGNOSIS: Asymptomatic high-grade right carotid artery stenosis. POSTOPERATIVE DIAGNOSIS: Asymptomatic high-grade right carotid artery stenosis. OPERATION: 1. Right carotid endarterectomy with bovine pericardial patch angioplasty. 2. Completion intraoperative duplex. SURGEON: Pop Steiner DO. MONTESSORI TEACHER: DEBBIE Hinds. ANESTHESIA: General. ESTIMATED BLOOD LOSS: 250 mL. FLUIDS: A liter of crystalloid. URINE OUTPUT: None. SPECIMENS: Right carotid plaque. IMPLANTS: A 0.8 x 8 bovine pericardial patch in the right carotid artery. FINDINGS: He had a heavily calcified about 90% stenosis in the right carotid artery, this endarterectomized well. Completion intraoperative duplex demonstrated no intraluminal defects and good flow through the external and continuous diastolic flow through the internal carotid artery. CLINICAL HISTORY: The patient is an 78-year-old male who was incidentally found to have a high-grade right carotid artery stenosis. This was confirmed with duplex and CT angiography. It was recommended for right carotid endarterectomy for stroke risk reduction. He does have a high-grade contralateral stenosis as well, probably 80%. DESCRIPTION OF PROCEDURE: After informed consent was obtained, the patient was taken to the operating room and placed on the OR bed in [place] [address] OPERATIVE REPORT Name: NATALI RADFORD Room: [address] IN .R.#: [id number] Admission: 08/31/18 Attend Phys: Miranda Brown Discharge: Date of : 38 Report #: [id number] was administered general anesthesia by the anesthesia team. Right neck was prepped and draped in the usual sterile fashion. A full timeout was performed identifying correct patient and procedure. Next, a longitudinal incision made along the anterior border of sternocleidomastoid. Dissection was carried down through skin and subcutaneous tissue both sharply with electrocautery. The facial vein was identified and was circumferentially mobilized, ligated between 2-0 silk ties and divided. We then dissected out the common carotid artery, controlled this circumferentially with umbilical tape and Rumel tourniquet. I then dissected out the superior thyroid artery and external carotid artery, controlled with Silastic vessel loop in Wills fashion. I then dissected out the distal internal carotid artery and controlled this with Silastic vessel loop as well. I then administered 8000 units of intravenous heparin. This allowed to circulate for 3 minutes and then sequentially clamped the internal followed by the external and common carotid arteries. I then made a longitudinal arteriotomy, extended with Wills scissors on the normal internal carotid artery and common carotid artery. I then placed a 12-Kiswahili [place] shunt in standard fashion. Doppler interrogation confirmed flow through the shunt. I then performed endarterectomy with eversion endarterectomy of the external carotid artery, tailored to good distal endpoint on the internal carotid artery and freed of all intimal debris. I then performed a patch angioplasty with bovine pericardial patch with running 6-0 Prolene suture. Prior to completion of the suture line, the shunt was removed and the carotid was allowed to fore and backbleed. I then flushed with heparinized saline. I then completed the patch, restored flow first up the external carotid artery and after several heartbeats in the internal carotid artery. I then performed a completion intraoperative duplex. Again this demonstrated no intraluminal defects and good flow through the external and continuous diastolic flow through the internal carotid artery. Satisfied with the result, the heparin was then partially reversed with 50 mg of protamine. Once hemostasis was ensured, and the wound was irrigated with antibiotic solution, this was closed in layers with 2-0 and 3-0 Vicryl. The skin and subcutaneous tissue was anesthetized with Marcaine anesthetic. The skin was closed with Monocryl and Dermabond was applied. All sponge, sharp and instrument counts were reported as correct x 2. He was extubated and awakened in the operating room, neurologically intact, moving upper and lower extremities appropriately to command. He was then transferred to recovery room in stable condition. <ELECTRONICALLY SIGNED> By: Pop Steiner DO 09/01/18 0747 1504 1545Ary Steiner DO /nt
[2018-09-01 08:35] LABS: ABSOLUTE MONOCYTES 0.8 thou/uL (0.0-1.2); ABSOLUTE NEUTROPHILS 6.4 thou/uL (1.6-8.1); BASOPHILS 0.1 %; EOSINOPHILS 0.1 %; HEMATOCRIT 35.6 % (42.0-52.0); LYMPHOCYTES 22.3 %; MCH 30.2 pg (26.0-34.0); MCHC 33.8 g/dL (28.0-37.0); MCV 89.5 fL (80.0-100.0); MONOCYTES 8.2 %; NUCLEATED RBCS 0 /100WBC; PLATELET COUNT* 114 thou/uL (150-400); POLYS 69.3 %; RBC 3.98 mil/uL (4.50-6.00); RDW-CV 15.7 % (10.5-14.5); WBC 9.2 thou/uL (4.0-11.0)
[2018-09-01 09:00] VITALS: BP 111/51
--- NOTE | 2018-09-01 10:30 | NUR ---
Pt admitted for carotid endarterectomy yesterday, states is feeling fine and wants to go home today. Pt lives with his , has been active and indep. Pt denies any discharge needs.
[2018-09-01 10:45] VITALS: BP 111/51
--- NOTE | 2018-09-01 13:05 | NUR ---
PT DISCHARGED HOME. COPY OF DISCHARGE INSTRUCTIONS TO PT AND WITH EXPLAINATION. BOTH VERBALIZED UNDERSTANDING. IV ACCESS X2 REMOVED. PT TOOK ALL BELONGINGS.
--- NOTE | 2018-09-03 15:15 | PATH ---
[facility] [address] [place] [address] PATHOLOGY RPT PROCEDURE Name: RADFORDALEKS KIRAN Room: [address] IN M.R.#: [id number] Admission: 08/31/18 Date of : 36 Discharge: 09/01/18 Report #: [id number] Path Case #: [id number] [facility] Accession Number: [id number] . 01 Material submitted: . RIGHT CAROTID PLAQUE . 01 Clinical history: . Pre-op diagnosis: Bilateral carotid stenosis Post-op diagnosis: Right carotid stenosis . 02 Diagnosis: Right carotid plaque: - Fibrointimal atherosclerotic plaque with prominent calcification. (BONNIE:ernestina; 09/02/2018) QMS/09/02/2018 . 02 Electronically signed: . Moncho Dowling MD, Pathologist NPI- [id number] . 01 Gross description: . The specimen is received in formalin, labeled "Aleks Radford, right carotid plaque". Received are two segments of pale rowan, partially calcified tissue measuring 3.0 x 1.6 x 0.7 cm in aggregate dimensions. The specimen is submitted representatively in cassette A1, following light decalcification. (CAA; 09/01/2018) QAC/QAC . 02 Pathologist provided ICD-10: I65.21 . 02 CPT . 824855, 090400 Specimen Comment: A courtesy copy of this report has been sent to Specimen Comment: [phone], , . Specimen Comment: Report sent to ,DR GREGG / DR TAYLOR Specimen Comment: A duplicate report has been generated due to demographic updates. Performed at: 01 [facility] [address], [place], [place] [id number] MD Josh Gresham MD Phone: [phone] Performed at: [address] [place] [address] [address], [place], [place] [id number] MD Moncho Dowling MD Phone: [phone]
== END 2018-09-01 13:45 | disposition home or self-care (01) | DRG 38 ==
LOC: M.PRE 07:10 → M.TBA 11:01 → M.ICU 11:01 → M.PRE 15:44 → M.ICU 17:28 → M.TBA 17:28 → M.ICU 09-01 13:45
PROVIDERS: ADMIT Internal Medicine
PROC: 03CK0ZZ Extirpation of Matter from Right Internal Carotid Artery, Open Approach (ICD-10-PCS; principal; 2018-08-31)
PROC: 03UK0KZ Supplement Right Internal Carotid Artery with Nonautologous Tissue Substitute, Open Approach (ICD-10-PCS; principal; 2018-08-31)
DX: I65.21 Occlusion and stenosis of right carotid artery (principal); R71.0 Precipitous drop in hematocrit; Z96.641 Presence of right artificial hip joint; Z96.651 Presence of right artificial knee joint; Z96.612 Presence of left artificial shoulder joint; Z96.611 Presence of right artificial shoulder joint; E11.9 Type 2 diabetes mellitus without complications; I50.9 Heart failure, unspecified; I10 Essential (primary) hypertension; I95.9 Hypotension, unspecified; Z79.899 Other long term (current) drug therapy

== ENCOUNTER 2018-11-19 07:01 | Inpatient (IN) | payer OTHER ==
[2018-11-19] VITALS (8 sets, daily range): BP systolic 95–161; BP diastolic 53–79
[~2018-11-19] VITALS: Ht 175.3 cm; Wt 73.0 kg
[~2018-11-19 07:01] MED LIST changes: +FUROSEMIDE 40 M40 M1 PO
[2018-11-19 12:26] LABS: HEMATOCRIT 38.4 % (42.0-52.0); MCH 29.1 pg (26.0-34.0); MCHC 33.9 g/dL (28.0-37.0); MCV 85.6 fL (80.0-100.0); RBC 4.49 mil/uL (4.50-6.00); RDW-CV 15.2 % (10.5-14.5); WBC 5.3 thou/uL (4.0-11.0)
[2018-11-19 12:31] LABS: CREATININE 0.9 mg/dL (0.6-1.3); POTASSIUM 4.4 mmol/L (3.5-5.1)
--- NOTE | 2018-11-19 18:59 | NUR ---
PT VSS, SR ON THE MONITOR ON 3L PER NC, ART LINE IN L WRIST. PT NECK IS CDI WITH MINIMAL BRUISING AT THIS TIME, ICE PLACED ON THE SITE. PT TOLERATING CLD AT THIS TIME WITH NO COMPLICATIONS. WILL HAVE PT SIGN PAPERWORK AND PASS ON TO PACK MASTER
[2018-11-20] VITALS (13 sets, daily range): BP systolic 88–134; BP diastolic 41–56
--- NOTE | 2018-11-20 06:25 | NUR ---
PT IS STABLE WITH NO BLEEDING NOTED.ROOM AIR WAS TOLERATED WHEN AWAKE. PUT TO O2 AT 2LPM WHEN ASLEEP. CLONIDINE GIVEN AT 2315H THEN BP WAS WITHIN NORMAL. NICOLE CATH NOT INSERTED, PT VOID FREELY.
--- NOTE | 2018-11-20 08:39 | OP ---
[facility] [place] [address] [place] [address] OPERATIVE REPORT Name: NATALI RADFORD Room: [address] IN M.R.#: [id number] Admission: 11/19/18 Attend Phys: Miranda Brown Discharge: Date of : 36 Report #: [id number] THIS REPORT FOR: //name// CC: Pop Sim DATE OF SERVICE: 11/19/2018 PREOPERATIVE DIAGNOSIS: Asymptomatic high-grade left carotid artery stenosis. POSTOPERATIVE DIAGNOSIS: Asymptomatic high-grade left carotid artery stenosis. OPERATIONS: 1. Left carotid endarterectomy with bovine pericardial patch angioplasty. 2. Completion intraoperative duplex. SURGEON: Pop Steiner DO. HOUSEKEEPING/LAUNDRY: DEBBIE Hinds. ANESTHESIA: General. ESTIMATED BLOOD LOSS: 200 mL. FLUIDS: Crystalloid. URINE OUTPUT: None. SPECIMENS: Left carotid plaque. IMPLANTS: A 0.8 x 8 bovine pericardial patch in the left carotid artery. FINDINGS: A heavily calcified, approximately 80% stenosis of the left carotid bifurcation. This endarterectomized well. Completion intraoperative duplex demonstrated no intraluminal defects and good flow through the external and continuous diastolic flow through the internal carotid artery. He woke up neurologically intact, moving upper and lower extremities appropriately to command. CLINICAL HISTORY: The patient is an 78-year-old man with known asymptomatic high-grade carotid artery stenosis, who previously underwent a right carotid endarterectomy and is now here for left carotid endarterectomy for stroke risk reduction. DETAILS OF PROCEDURE: After informed consent was obtained, [place] [address] OPERATIVE REPORT Name: NATALI RADFORD Room: [address] IN .R.#: [id number] Admission: 11/19/18 Attend Phys: Miranda Brown Discharge: Date of : 36 Report #: [id number] taken to the operating room and placed on the OR bed in supine position. He was administered general anesthesia by the anesthesia team. Left neck was prepped and draped in the usual sterile fashion. A full timeout was performed identifying correct patient and procedure. Next, a longitudinal incision was made along the anterior border of the sternocleidomastoid. Dissection was carried down through skin and subcutaneous tissues, both sharp and electrocautery. The platysma was divided. The facial vein was identified. It was ligated between 2-0 silk ties and divided. The proximal common carotid artery was circumferentially dissected free and controlled with an umbilical tape and Rumel tourniquet. I then dissected out the external carotid and superior thyroid arteries, controlled with Silastic vessel loops in Wills fashion. I then dissected out the distal internal carotid artery as a soft location, controlled with Silastic vessel loop as well. I then administered 8000 units of intravenous heparin. This was allowed to circulate for 3 minutes. I then sequentially clamped the internal, followed by the external common carotid arteries. I made a longitudinal arteriotomy, extended onto a normal common carotid artery and normal internal carotid artery and placed a 12-Frisian [place] shunt in standard fashion and Doppler interrogation confirmed flow through the shunt. I then performed a standard endarterectomy with eversion endarterectomy of the external carotid artery, tailored to good distal endpoint in the internal carotid artery. I then freed up all intimal debris. I flushed with heparinized saline. I then performed a patch angioplasty with bovine pericardial patch and running 6-0 Prolene suture. Prior to completion of the suture line, a shunt was removed. The artery was allowed to fore and backbleed and then flushed with heparinized saline. I then completed the patch, restored flow first up the external carotid and after several heartbeats to the internal carotid artery. I then performed the completion intraoperative duplex, again demonstrated no intraluminal defects and good flow through the external and continuous diastolic flow through the internal carotid artery. Satisfied with the result, the heparin was then partially reversed with 50 mg of protamine. Once hemostasis was ensured, the wound was irrigated with antibiotic solution. The wound was then closed in layers with 2-0 and 3-0 Vicryl, 4-0 Monocryl on the skin and Dermabond was applied. All sponge, sharp and instrument counts reported as correct x 2. He was extubated in the operating room, neurologically intact, moving upper and lower extremities appropriately, then taken to the recovery room in stable condition. <ELECTRONICALLY SIGNED> By: Pop Steiner DO 11/20/18 0839 1500 1951Ary Steiner DO /nt
--- NOTE | 2018-11-20 12:52 | NUR ---
PATIENT GIVEN DISCHARGE INSTRUCTIONS WITH AND DAUGHTER PRESENT. DENIED QUESTIONS. PATIENT DISCHARGED BY PRIVATE VECHILE AT 1250.
== END 2018-11-20 12:50 | disposition home or self-care (01) | DRG 38 ==
LOC: M.PRE 07:01 → M.ICU 11:01 → M.TBA 11:01 → M.PRE 11:13 → M.ICU 17:51
PROVIDERS: Surgery; ADMIT Internal Medicine
PROC: 03UN0KZ Supplement Left External Carotid Artery with Nonautologous Tissue Substitute, Open Approach (ICD-10-PCS; principal; 2018-11-19)
PROC: 03CN0ZZ Extirpation of Matter from Left External Carotid Artery, Open Approach (ICD-10-PCS; principal; 2018-11-19)
DX: I65.22 Occlusion and stenosis of left carotid artery (principal); J98.11 Atelectasis; I25.10 Atherosclerotic heart disease of native coronary artery without angina pectoris; I48.91 Unspecified atrial fibrillation; M19.90 Unspecified osteoarthritis, unspecified site; E11.51 Type 2 diabetes mellitus with diabetic peripheral angiopathy without gangrene; I10 Essential (primary) hypertension; I35.0 Nonrheumatic aortic (valve) stenosis; Z79.899 Other long term (current) drug therapy; Z79.82 Long term (current) use of aspirin; Z79.84 Long term (current) use of oral hypoglycemic drugs; Z89.422 Acquired absence of other left toe(s); Z98.42 Cataract extraction status, left eye; Z98.41 Cataract extraction status, right eye

== ENCOUNTER 2018-11-21 20:35 | Observation (INO) | payer OTHER ==
[~2018-11-21] VITALS: Ht 175.3 cm; Wt 73.0 kg
[2018-11-21 20:46] VITALS: BP 192/93
[2018-11-21 21:11] LABS: ABSOLUTE EOSINOPHILS 0.2 thou/uL (0.0-0.7); ABSOLUTE LYMPHOCYTES 1.8 thou/uL (0.8-5.3); ABSOLUTE MONOCYTES 0.8 thou/uL (0.0-1.2); ABSOLUTE NEUTROPHILS 3.7 thou/uL (1.6-8.1); BASOPHILS 0.4 %; EOSINOPHILS 2.7 %; HEMATOCRIT 37.8 % (42.0-52.0); HEMOGLOBIN 12.6 gm/dL (14.0-18.0); LYMPHOCYTES 28.1 %; MCH 28.8 pg (26.0-34.0); MCHC 33.3 g/dL (28.0-37.0); MCV 86.3 fL (80.0-100.0); MONOCYTES 11.8 %; MPV 9.1 fl. (7.2-11.1); NUCLEATED RBCS 0 /100WBC; PLATELET COUNT* 126 thou/uL (150-400); RBC 4.38 mil/uL (4.50-6.00); RDW-CV 15.5 % (10.5-14.5); WBC 6.5 thou/uL (4.0-11.0)
[2018-11-21 21:20] LABS: PROTIME 10.2 Seconds (9.20-11.50)
[2018-11-21 21:26] LABS: CALCIUM 8.7 mg/dL (8.5-10.1); POTASSIUM 3.9 mmol/L (3.5-5.1); TROPONIN-I LEVEL 0.08 ng/mL (<0.06)
[2018-11-21 21:34] LABS: ALBUMIN 3.3 g/dL (3.4-5.0); TOTAL BILIRUBIN 0.5 mg/dL (<0.1-1.0)
[2018-11-22 04:39] VITALS: BP 127/55
[2018-11-22 08:45] VITALS: BP 133/59
[2018-11-22 09:35] LABS: URINE BILIRUBIN NEGATIVE (Negative); URINE BLOOD NEGATIVE (Negative); URINE CLARITY CLEAR; URINE COLOR YELLOW; URINE GLUCOSE-RANDOM NEGATIVE (Negative); URINE KETONES NEGATIVE (Negative); URINE LEUKOCYTES-REFLEX NEGATIVE (Negative); URINE NITRITE-REFLEX NEGATIVE (Negative); URINE PROTEIN NEGATIVE (Negative); URINE UROBILINOGEN 0.2 E.U./dl (0.2-1.0)
[2018-11-22] MEDS ORDERED: MEDROLDOSEPACK PO (11:25)
[2018-11-22] MEDS ORDERED: AZITHROMYCIN 2250 MG PO (11:25)
[2018-11-22 13:20] VITALS: BP 143/61
--- NOTE | 2018-11-22 17:03 | CARDNUC ---
[place] [address] CARDIAC NUCLEAR IMAGING REPORT Name: ALEKS RADFORD Room: [facility]18 [facility] Sofia#: [id number] Admission: 11/21/18 Attend Phys: Aleks Sim Discharge: Date of : 36 Date of Service: 11/22/18 170 Report #: [id number] THIS REPORT FOR: //name// APPROVED REPORT Imaging Protocol: Rest Tc-99m/Stress Tc-99m 1 day Study performed: 11/22/2018 12:26:00 Indication: Chest pain, Dyspnea, Elevated Troponin. Patient Location: In-Patient Room #: Oni Stress Tech: Giselle Gonzalez Stress Nurse: Sarah Guzman RN Ht: 5 ft 9 in Wt: 162 lbs BSA: 1.89 m2 BMI: 23.92 Medical History Medical History: Angina, Atrial Fibrillation, CAD s/p stent, Carotid artery disease, Aortic Stenosis, PAD, COPD, Elevated Troponins, Hyperlipidemia, HTN, Diabetes, SOB, partial foot amputation. Medications: Atorvastatin, Sotalol, ASA 81 Mg, Plavix, Fish Oil, Glipizide, Lisinopril, Metformin, Lasix, NTG, K-Dur. Allergies: No known drug allergies Cardiac Risk Factors: Age, DM, HTN, Hyperlipidemia, SOB, PAD, COPD, Carotid Stenosis, elevated Troponin, Aortic Stenosis. Previous Cardiac Procedures: PCI Pretest Chest Pain Characteristics: No chest pain Exercise History: Indeterminate Physical Disabilities: Partial left foot amputation. Meds Held (24 hrs): NTG Resting Data Rest SPECT myocardial perfusion imaging was performed in supine position 30 minutes following the intravenous injection of 10.9 mCi of Tc-99m Sestamibi. Time of rest injection: 12:50 The images were gated to evaluate regional wall motion and calculate left ventricular ejection fraction. Administration Route: IV Administration Site: Right AC Pharmacologic Stress Pharmacologic stress test was performed by injecting Regadenoson 0.4 [place] [address] CARDIAC NUCLEAR IMAGING REPORT Name: ALEKS RADFORD [address] [id number] Admission: 11/21/18 Attend Phys: Aleks Sim Discharge: Date of : 36 Date of Service: 11/22/18 1702 Report #: [id number] mg IV push over 10-15 seconds immediately followed by the intravenous injection of 33.1 mCi of Tc-99m Sestamibi. Time of stress injection: 14:30 Administration Route: IV Administration Site: Right AC Heart Rate at time of stress injection: 74 bpm. Gated Stress SPECT was performed 45 minutes after stress injection. The images were gated to evaluate regional wall motion and calculate left ventricular ejection fraction. Prone imaging was performed. Stress Test Details Stress Test: Pharmacologic stress testing performed using 0.4 mg of regadenoson per 5 mL given IV over 10 seconds. Reason for pharmacologic stress test: Partial left foot amputation.. HR Max Heart Rate (APMHR): 140 bpm Resting HR: 63 bpm Target HR (85% APMHR): 119 bpm Max HR Achieved: 81 bpm % of APMHR: 57 Recovery HR: 73 bpm HR response to stress: Normal HR response to stress BP Resting BP: 126/61 mmHg Max BP: 108/61 mmHg Recovery BP: 129/61 mmHg BP response to stress: Normal blood pressure response to stress. ECG Resting ECG: Sinus Rhythm Stress ECG: Sinus Rhythm ST Change: None Recovery ECG: Sinus Rhythm Recovery ST Change: None Clinical Reason for Termination: Completed protocol Stress Symptoms: Dyspnea Exercise duration: 0 min 0 sec Exercise capacity: 1.00 METs Nurse Comments 78 year old male presented from [facility] with [place] [address] CARDIAC NUCLEAR IMAGING REPORT Name: ALEKS RADFORD [address] [id number] Admission: 11/21/18 Attend Phys: Aleks Sim Discharge: Date of : 36 Date of Service: 11/22/18 1702 Report #: [id number] amputation c/o recent CP with SOA and elevated troponins. Patient tolerated sitting Lexiscan well. Recovery unremarkable with PO caffeine. Patient escorted via wheelchair by staff to Nuclear Medicine for images. Patient stable with no complaints at that time. Stress ECG Conclusion no ischemia on ECG Study Data At rest, the left ventricular ejection fraction was 54%.. Post stress, the left ventricular ejection was 65%.. SSS: 13 SRS: 11 SDS: 2 TID = 1.17. Perfusion Review of SPECT images reveals a small , severe intensity fixed apical defect. No reversible defects and there is a wall motion abnormality. No resolution is seen with prone imaging. Wall Motion apical wall motion is present Nuclear Conclusion ECG Findings: negative for ischemia Clinical Findings: negative for ischemia Nuclear Findings: negative for ischemia Exercise Capacity: not assessed Left Ventricular Function: normal Risk Study: low Evidence of a prior apical CO.Preserved LV systolic function <Conclusion> no ischemia on ECG <ELECTRONICALLY SIGNED> By: Pankaj Hayden MD, FACC 11/22/18 170 01 01 Pankaj Hayden MD, FACC /INF
[2018-11-22 18:10] VITALS: BP 144/58
[2018-11-22 18:45] VITALS: BP 139/63
[2018-11-22 20:00] VITALS: BP 121/41
[2018-11-23] VITALS: BP 137/58
[2018-11-23 04:00] VITALS: BP 147/67
[2018-11-23 08:15] VITALS: BP 123/48
--- NOTE | 2018-11-23 10:02 | EKG ---
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: LETHA : 1940 Requested By: Cammy Arango Order Number: [id number] MD: Pankaj Hayden Measurements Intervals [place] Rate: 90 P: -25 [place]: 164 QRS: -7 QRSD: 106 T: 94 QT: 398 QTc: 487 Interpretive Statements Sinus rhythm Repol abnrm suggests ischemia, diffuse leads Compared to ECG 08/22/2018 22:15:00 Possible ischemia now present Prolonged QT interval no longer present Electronically Signed On 11-23-2018 10:02:09 CDT by Pankaj Hayden [email or web address] <ELECTRONICALLY SIGNED> By: Pankaj Hayden MD, FACC 11/23/18 1002 43 43 Pankaj Hayden MD, FAC /EPI
--- NOTE | 2018-11-23 10:02 | EKG ---
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: : 1940 Requested By: Cammy Arango Order Number: [id number] MD: Pankaj Hayden Measurements Intervals [place] Rate: 65 P: 40 MS: 175 QRS: -7 QRSD: 103 T: 114 QT: 457 QTc: 476 Interpretive Statements Sinus rhythm Probable left atrial enlargement Borderline repolarization abnormality Borderline prolonged QT interval Compared to ECG 08/22/2018 22:15:00 No significant changes Electronically Signed On 11-23-2018 10:02:40 CDT by Pankaj Hayden [email or web address] <ELECTRONICALLY SIGNED> By: Pankaj Hayden MD, FAC 11/23/18 1002 0020 0020 Pankaj Hayden MD, [facility] /EPI
[2018-11-23] MEDS ORDERED: IMDUR 30 MG TAB30 M1 PO (11:16)
[2018-11-23 11:17] VITALS: BP 123/48
[2018-11-23] MEDS ORDERED: NORCO 5-325 TA1 EACH PO (11:21)
== END 2018-11-23 12:15 | disposition home or self-care (01) ==
LOC: M.ERS 20:35 → M.TBA-ER 22:50 → M.2W 11-22 18:42
PROVIDERS: Emergency Medicine; ADMIT Internal Medicine
DX: J20.9 Acute bronchitis, unspecified (principal); R07.89 Other chest pain; I65.23 Occlusion and stenosis of bilateral carotid arteries; I48.0 Paroxysmal atrial fibrillation; I11.0 Hypertensive heart disease with heart failure; E11.51 Type 2 diabetes mellitus with diabetic peripheral angiopathy without gangrene; I50.33 Acute on chronic diastolic (congestive) heart failure; D86.9 Sarcoidosis, unspecified; J44.9 Chronic obstructive pulmonary disease, unspecified; I25.10 Atherosclerotic heart disease of native coronary artery without angina pectoris; Z87.09 Personal history of other diseases of the respiratory system; Z98.890 Other specified postprocedural states; Z96.652 Presence of left artificial knee joint

== ENCOUNTER 2018-12-07 11:18 | Emergency (ER) | payer OTHER ==
[~2018-12-07] VITALS: Ht 175.3 cm; Wt 76.7 kg
[~2018-12-07 11:18] MED LIST changes: +AZITHROMYCIN 2250 MG PO; +IMDUR 30 MG TAB30 M1 PO; +NORCO 5-325 TA1 EACH PO
[2018-12-07] MEDS ORDERED: GLUCOPHAGE XR500 MG PO (11:27)
[2018-12-07 11:39] LABS: ABSOLUTE EOSINOPHILS 0.2 thou/uL (0.0-0.7); ABSOLUTE LYMPHOCYTES 1.9 thou/uL (0.8-5.3); ABSOLUTE MONOCYTES 0.7 thou/uL (0.0-1.2); ABSOLUTE NEUTROPHILS 5.1 thou/uL (1.6-8.1); BASOPHILS 0.6 %; EOSINOPHILS 2.6 %; HEMATOCRIT 41.4 % (42.0-52.0); HEMOGLOBIN 13.6 gm/dL (14.0-18.0); LYMPHOCYTES 24.4 %; MCH 28.3 pg (26.0-34.0); MCV 85.7 fL (80.0-100.0); MONOCYTES 8.5 %; MPV 8.9 fl. (7.2-11.1); NUCLEATED RBCS 0 /100WBC; PLATELET COUNT* 154 thou/uL (150-400); POLYS 63.9 %; RBC 4.82 mil/uL (4.50-6.00); RDW-CV 15.3 % (10.5-14.5); WBC 7.9 thou/uL (4.0-11.0)
[2018-12-07 11:48] LABS: APTT 27.7 Seconds (25.0-31.3); PROTIME 10.4 Seconds (9.20-11.50)
[2018-12-07 11:55] LABS: ANION GAP 7 mmol/L (7-16); BUN 19 mg/dL (7-18); CALCIUM 9.5 mg/dL (8.5-10.1); CHLORIDE 105 mmol/L (98-107); CO2 29 mmol/L (21-32); CREATININE 1.2 mg/dL (0.6-1.3); GLUCOSE 64 mg/dL (70-99); POTASSIUM 4.7 mmol/L (3.5-5.1); SODIUM 141 mmol/L (136-145); TROPONIN-I LEVEL <0.06 ng/mL (<0.06)
[2018-12-07 12:01] LABS: ALBUMIN 3.8 g/dL (3.4-5.0); ALKALINE PHOSPHATASE 81 U/L (46-116); LIPASE 462 U/L (73-393); MAGNESIUM 2.1 mg/dL (1.8-2.4); NT-PRO BRAIN NAT PEPTIDE 1367 pg/mL (<300); SGOT 38 U/L (15-37); SGPT 37 U/L (30-65); TOTAL BILIRUBIN 0.5 mg/dL (<0.1-1.0); TOTAL PROTEIN 7.7 g/dL (6.4-8.2)
[2018-12-07 13:02] VITALS: BP 132/75
--- NOTE | 2018-12-08 14:30 | EKG ---
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: TDOWNS : 1940 Requested By: Stephan Jordan Order Number: [id number] MD: To Arguello Measurements Intervals [place] Rate: 51 P: 36 AR: 210 QRS: -10 QRSD: 100 T: 106 QT: 466 QTc: 430 Interpretive Statements Sinus rhythm Atrial premature complex Borderline repolarization abnormality Baseline wander in lead(s) V1 Compared to ECG 11/22/2018 00:20:58 Atrial premature complex(es) now present Electronically Signed On 12-08-2018 14:29:58 CDT by To Arguello [email or web address] <ELECTRONICALLY SIGNED> By: To Arguello MD, [facility] 12/08/18 1429 1123 1123 To Arguello MD, [facility] /EPI
== END 2018-12-07 13:02 | disposition home or self-care (01) ==
LOC: M.ERS 11:18
PROVIDERS: Family Medicine
DX: R42 Dizziness and giddiness (principal); I48.91 Unspecified atrial fibrillation; J44.9 Chronic obstructive pulmonary disease, unspecified; E11.9 Type 2 diabetes mellitus without complications; I10 Essential (primary) hypertension; I25.10 Atherosclerotic heart disease of native coronary artery without angina pectoris

== ENCOUNTER 2019-03-25 21:21 | Emergency (ER) | payer OTHER ==
[~2019-03-25] VITALS: Ht 175.3 cm; Wt 77.2 kg
[~2019-03-25 21:21] MED LIST changes: +GLUCOPHAGE XR500 MG PO
[2019-03-25 21:35] VITALS: BP 141/70
[2019-03-25 22:05] LABS: ABSOLUTE EOSINOPHILS 0.1 thou/uL (0.0-0.7); ABSOLUTE LYMPHOCYTES 1.4 thou/uL (0.8-5.3); ABSOLUTE MONOCYTES 0.4 thou/uL (0.0-1.2); ABSOLUTE NEUTROPHILS 2.6 thou/uL (1.6-8.1); BASOPHILS 0.4 %; EOSINOPHILS 2.3 %; HEMATOCRIT 38.8 % (42.0-52.0); HEMOGLOBIN 12.9 gm/dL (14.0-18.0); LYMPHOCYTES 30.3 %; MCH 27.9 pg (26.0-34.0); MCHC 33.2 g/dL (28.0-37.0); MONOCYTES 9.6 %; MPV 9.1 fl. (7.2-11.1); NUCLEATED RBCS 0 /100WBC; PLATELET COUNT* 108 thou/uL (150-400); POLYS 57.4 %; RBC 4.61 mil/uL (4.50-6.00); RDW-CV 16.7 % (10.5-14.5); WBC 4.6 thou/uL (4.0-11.0)
[2019-03-25 22:20] LABS: CALCIUM 9.3 mg/dL (8.5-10.1); CREATININE 1.1 mg/dL (0.6-1.3); POTASSIUM 4.2 mmol/L (3.5-5.1)
[2019-03-26] MEDS ORDERED: NORCO 5-325 TA1 EAC1 PO (00:12)
--- NOTE | 2019-03-28 12:24 | EKG ---
[place] [address] ELECTROCARDIOGRAM REPORT Name: PRABHAKARNATALI BECK [facility] [id number] Admission: 03/25/19 Attend Phys: Discharge: 03/26/19 Date of : 36 Report #: [id number] THIS REPORT FOR: //name// [facility] Test Date: 2019-03-25 Test Time: 21:25:22 Pat Name: NATALI RADFORD Department: Room: Gender: M Director Appointment: : 1940 Requested By: Cammy Arango Order Number: [id number] Aaliyah MD: Bill Munson Measurements Intervals [place] Rate: 72 P: 27 ME: 209 QRS: -14 QRSD: 107 T: 101 QT: 441 QTc: 483 Interpretive Statements Sinus rhythm Nonspecific repol abnormality, lateral leads Compared to ECG 12/07/2018 11:23:10 Atrial premature complex(es) no longer present Electronically Signed On 03-28-2019 12:23:52 CDT by Bill Munson [email or web address] <ELECTRONICALLY SIGNED> By: Bill Munson MD, [facility] 03/28/19 1223 24 24 Bill Munson MD, [facility] /EPI
== END 2019-03-26 00:40 | disposition home or self-care (01) ==
LOC: M.ERS 21:21
PROVIDERS: Emergency Medicine
DX: S62.131A Displaced fracture of capitate [os magnum] bone, right wrist, initial encounter for closed fracture (principal); J44.9 Chronic obstructive pulmonary disease, unspecified; I48.91 Unspecified atrial fibrillation; E11.9 Type 2 diabetes mellitus without complications; I10 Essential (primary) hypertension; I25.10 Atherosclerotic heart disease of native coronary artery without angina pectoris; Z96.611 Presence of right artificial shoulder joint; Z96.612 Presence of left artificial shoulder joint; W18.39XA Other fall on same level, initial encounter; Y93.89 Activity, other specified; Y92.89 Other specified places as the place of occurrence of the external cause; Y99.8 Other external cause status

== ENCOUNTER 2020-02-14 18:30 | Inpatient (IN) | payer OTHER ==
[~2020-02-14] VITALS: Ht 175.3 cm; Wt 80.3 kg
[~2020-02-14 18:30] MED LIST changes: +NORCO 5-325 TA1 EAC1 PO
[2020-02-14 18:45] VITALS: BP 133/63
[2020-02-14 19:13] LABS: ABSOLUTE LYMPHOCYTES 0.5 thou/uL (0.8-5.3); ABSOLUTE MONOCYTES 0.4 thou/uL (0.0-1.2); ABSOLUTE NEUTROPHILS 2.8 thou/uL (1.6-8.1); BASOPHILS 0.4 %; EOSINOPHILS 0.1 %; HEMATOCRIT 39.3 % (42.0-52.0); HEMOGLOBIN 13.5 gm/dL (14.0-18.0); LYMPHOCYTES 12.5 %; MCH 29.9 pg (26.0-34.0); MCHC 34.4 g/dL (28.0-37.0); MCV 86.8 fL (80.0-100.0); MONOCYTES 11.4 %; MPV 8.7 fl. (7.2-11.1); NUCLEATED RBCS 0 /100WBC; PLATELET COUNT* 96 thou/uL (150-400); POLYS 75.6 %; RBC 4.52 mil/uL (4.50-6.00); RDW-CV 15.2 % (10.5-14.5); WBC 3.6 thou/uL (4.0-11.0)
[2020-02-14 19:21] LABS: CALCIUM 8.4 mg/dL (8.5-10.1); CREATININE 1.4 mg/dL (0.6-1.3); POTASSIUM 4.2 mmol/L (3.5-5.1)
[2020-02-14 19:22] LABS: INR 1.1; PROTIME 11.4 Seconds (9.20-11.50)
[2020-02-14 19:32] LABS: ALBUMIN 3.5 g/dL (3.4-5.0); TOTAL BILIRUBIN 0.7 mg/dL (<0.1-1.0); TOTAL PROTEIN 7.3 g/dL (6.4-8.2)
[2020-02-14 22:10] LABS: URINE BILIRUBIN NEGATIVE (Negative); URINE BLOOD NEGATIVE (Negative); URINE CLARITY CLEAR; URINE COLOR YELLOW; URINE GLUCOSE-RANDOM NEGATIVE (Negative); URINE KETONES NEGATIVE (Negative); URINE LEUKOCYTES-REFLEX NEGATIVE (Negative); URINE NITRITE-REFLEX NEGATIVE (Negative); URINE PROTEIN 1+ (Negative); URINE UROBILINOGEN 0.2 E.U./dl (0.2-1.0)
[2020-02-14 22:55] VITALS: BP 101/53
[2020-02-14 23:10] VITALS: BP 88/52
[2020-02-15] VITALS (8 sets, daily range): BP systolic 94–159; BP diastolic 46–89
[2020-02-15] MEDS ORDERED: SORINE 80 MG TA80 MG PO (02:20)
[2020-02-15] MEDS ORDERED: ROSUVASTATIN CA20 MG PO (02:21)
[2020-02-15] MEDS ORDERED: SINGULAIR 10 MG10 MG PO (02:23)
[2020-02-15] MEDS ORDERED: RAMIPRIL2.5 MG PO (02:24)
[2020-02-15] MEDS ORDERED: CALCIUM500 MG PO (02:25)
[2020-02-15] MEDS ORDERED: CLOPIDOGREL75 MG PO (02:25)
[2020-02-15] MEDS ORDERED: TESSALON PERLE100 M1 PO (02:26)
[2020-02-15] MEDS ORDERED: ZYRTEC 10 MG TA10 MG PO (02:26)
--- NOTE | 2020-02-15 07:38 | NUR ---
RECEIVED REPORT FROM BOAT CANVAS MAKER INSTALLER IZZY AT 2241. PT ARRIVED TO UNIT VIA ER CART AT 2305. PT AAOX4, ORIENTED TO ROOM AND CALL LIGHT. HIGH FALL PRECAUTIONS IN PLACE. PT SCREENED POSITIVE FOR SEPSIS AT 0023. DR. PHIPPS NOTIFIED AND NEW ORDERS RECEIVED. BP'S SOFT UPON ARRIVAL TO UNIT BUT IMPROVED AFTER IV FLUID BOLUS. AT APPROX 0545, PT C/O HAVING SOB, CRACKLES AUSCULTATED IN BOTH LUNGS. DR. PHIPPS NOTIFIED AND NEW ORDERS RECEVED. PT PLACED IN ENHANCED PRECAUTIONS AT THIS TIME. PT PLACED ON BIPAP, IV MEDS ADMINISTERED. ATTEMPTED TO CONTACT FAMILY X2 TO INFORM OF CHANGE IN CONDITION BUT NO ANSWER AT THIS TIME. CALL LIGHT WITHIN REACH. HOURLY ROUNDING COMPLETED.
[2020-02-15 13:15] LABS: BE -4.9 mmol/L (-2 to +3); PCO2 33.7 mmHg (35.0-45.0); PO2 76.7 mmHg (75.0-100.0); pH 7.377 (7.340-7.450)
[2020-02-15 14:47] LABS: HEMATOCRIT 40.1 % (42.0-52.0); HEMOGLOBIN 13.7 gm/dL (14.0-18.0); MCHC 34.2 g/dL (28.0-37.0); MCV 87.8 fL (80.0-100.0); MPV 8.8 fl. (7.2-11.1); NUCLEATED RBCS 0 /100WBC; PLATELET COUNT* 88 thou/uL (150-400); RBC 4.57 mil/uL (4.50-6.00); RDW-CV 15.3 % (10.5-14.5); WBC 8.2 thou/uL (4.0-11.0)
[2020-02-15 14:57] LABS: CALCIUM 7.7 mg/dL (8.5-10.1); CREATININE 1.9 mg/dL (0.6-1.3); MAGNESIUM 1.5 mg/dL (1.8-2.4); PHOSPHORUS* 4.3 mg/dL (2.5-4.9); POTASSIUM 4.3 mmol/L (3.5-5.1)
[2020-02-15 15:49] LABS: ABSOLUTE LYMPHOCYTES 0.3 thou/uL (0.8-5.3); ABSOLUTE MONOCYTES 0.2 thou/uL (0.0-1.2); ABSOLUTE NEUTROPHILS 7.7 thou/uL (1.6-8.1); PLATELET ESTIMATE ADEQUATE
--- NOTE | 2020-02-15 16:00 | NUR ---
PT.IN ISOLATION. COVID PENDING. CM UNABLE TO CALL FAMILY TODAY,DUE TO TIME CONSTRAINTS.
[2020-02-15 21:15] LABS: BE -11.4 mmol/L (-2 to +3); PCO2 41.1 mmHg (35.0-45.0); PO2 108.4 mmHg (75.0-100.0)
[2020-02-15 21:19] LABS: pH 7.207 (7.340-7.450)
[2020-02-15 21:51] LABS: POTASSIUM 5.1 mmol/L (3.5-5.1)
--- NOTE | 2020-02-15 22:20 | NUR ---
PT TRANSFERRED TO ICU VIA REPORT TO ZE CROWELL. PT BEGAN C/O SOA AND WAS COUGHING. RT CALLED TO ASSESS AND ADMINISTER BREATHING TREATMENT. PT HR ELEVATED UP INTO 140'S. WITHOUT PHONE,INTERNET OR OTHER COMMUNICATIONS, IT WAS DECIDED TO COLLECT AN EKG. RT PLACED PT UPON BIPAP. PHYSICIAN CONTACTED FOR ORDERS VIA CALLIOPE PLAYER. PT GIVEN 2100 SOTALOL DOSE, 40 MG LASIX IV. ABGS DRAWN. ALSO ASSESSED THAT PT HAD BLOOD TINGED/ PINK TISSUE ON BEDSIDE TABLE WHERE PT HAD NOT BEEN EXPECTORATING COUGH SPUTUM IN AM. PT DID HOWEVER HAVE YELLOW SPUTUM PRODUCTION POST COVID PABLITO SWAB. PT HAS HAD 2000 URINE OUTPUT THROUGHOUT SHIFT, 700 OUT PRIOR TO INITIAL SCHEDULED LASIX DOSE. SON CALLED AND UPDATED. ZE WILL ALSO CONTACT SON AFTER PT BECOMES STABILIZED.
[2020-02-15 22:47] LABS: BE -4.8 mmol/L (-2 to +3); PCO2 39.6 mmHg (35.0-45.0); PO2 102.3 mmHg (75.0-100.0); pH 7.335 (7.340-7.450)
[2020-02-16] VITALS (16 sets, daily range): BP systolic 95–118; BP diastolic 40–65
--- NOTE | 2020-02-16 00:52 | NUR ---
PT ATTEMPTED TO VOID PER URINAL, UNABLE AT THIS TIME. BLADDER SCAN SHOWED >530 ML. NICOLE CATHETER PLACED WITH IMMEDIATE RETURN OF 600ML CLEAR YELLOW URINE. SPECIMEN SENT TO LAB FOR OUTSTANDING MICRO ORDERS.
[2020-02-16 03:13] LABS: ABSOLUTE LYMPHOCYTES 0.9 thou/uL (0.8-5.3); ABSOLUTE MONOCYTES 0.7 thou/uL (0.0-1.2); ABSOLUTE NEUTROPHILS 6.2 thou/uL (1.6-8.1); BASOPHILS 0.1 %; HEMATOCRIT 39.2 % (42.0-52.0); HEMOGLOBIN 13.5 gm/dL (14.0-18.0); LYMPHOCYTES 11.3 %; MCH 29.9 pg (26.0-34.0); MCHC 34.4 g/dL (28.0-37.0); MCV 86.8 fL (80.0-100.0); MONOCYTES 8.9 %; MPV 9.3 fl. (7.2-11.1); NUCLEATED RBCS 0 /100WBC; PLATELET COUNT* 82 thou/uL (150-400); POLYS 79.7 %; RBC 4.51 mil/uL (4.50-6.00); RDW-CV 15.4 % (10.5-14.5); WBC 7.7 thou/uL (4.0-11.0)
[2020-02-16 04:16] LABS: ALBUMIN 2.9 g/dL (3.4-5.0); CALCIUM 7.6 mg/dL (8.5-10.1); CREATININE 1.9 mg/dL (0.6-1.3); MAGNESIUM 2.1 mg/dL (1.8-2.4); POTASSIUM 4.2 mmol/L (3.5-5.1); TOTAL BILIRUBIN 0.5 mg/dL (<0.1-1.0); TOTAL PROTEIN 6.8 g/dL (6.4-8.2)
--- NOTE | 2020-02-16 06:42 | NUR ---
TRANSFERRED TO ICU BED 1 AT 2014, SEE ASSESSMENTS. AT THAT TIME, PT WITH LABORED BREATHING, AFIB RVR HR 120s, AND AMS. VENKATESH, LAND USE PLANNER, REPORTED SHE GAVE SOTALOL AND IV LASIX PRIOR TO TRANSFER. WITHIN LESS THAN ONE HOUR OF ARRIVAL PTS LUNGS WERE NO LONGER COARSE/WET, ONLY DIMINISHED, CARDIAC RHYTHM HAD CONVERTED BACK TO SINUS WITH HR 70s, AND PT ABLE TO SLEEP COMFORTABLY ON BIPAP. PER DR ABDI, REPEAT ABGs WERE OBTAINED AND CALLED TO HIM, NO NEW ORDERS OTHER TO MAINTAIN NPO EXCEPT SIPS OF WATER AND AVOID PO MEDS UNTIL SEEN THIS AM. 0545 PT A/O X4, REQUESTING TO USE BSC FOR BM. ASSISTED TO BSC WITH SBA X1 AND 6L NC, SAT REMAINED >97% DURING TRANSFER AND WHILE ON COMMODE. REMAINS ON 6L NC AT THIS TIME, O2 SAT 98%. PT ALERT AND PHONED TO UPDATE HER. CALL LIGHT WITHIN REACH.
--- NOTE | 2020-02-16 08:41 | EKG ---
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: [place] : 1940 Requested By: Shaina Danielle Order Number: [id number] MD: Damien Cain Measurements Intervals [place] Rate: 83 P: -26 [place]: 209 QRS: -32 QRSD: 100 T: 105 QT: 390 QTc: 459 Interpretive Statements Sinus rhythm Abnormal R-wave progression, late transition LVH, by voltage Repolarization abnormality Compared to ECG 03/25/2019 21:25:22 Left ventricular hypertrophy now present Electronically Signed On 02-16-2020 8:41:21 CDT by Damien Cain [email or web address] <ELECTRONICALLY SIGNED> By: Damien Cain MD, FACC 02/16/20 0841 41 41 Damien Cain MD, FAC /EPI
--- NOTE | 2020-02-16 08:54 | EKG ---
[place] [address] ELECTROCARDIOGRAM REPORT Name: RADFORDNATALI Room: [facility]- ADM IN M.R.#: [id number] Admission: 02/14/20 Attend Phys: Shaina Danielle, Discharge: Date of : 36 Date of Service: 02/14/20 2340 Report #: [id number] THIS REPORT FOR: //name// [facility] Test Date: 2020-02-14 Test Time: 23:40:41 Pat Name: NATALI RADFORD Department: Room: 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: MONICA : 1940 Requested By: Stephan Jordan Order Number: [id number] MD: Damien Cain Measurements Intervals [place] Rate: 86 P: ME: QRS: -24 QRSD: 105 T: 137 QT: 447 QTc: 535 Interpretive Statements Atrial fibrillation LVH, by voltage Repolarization abnormality Anterior Q waves, possibly due to LVH Prolonged QT interval Compared to ECG 03/25/2019 21:25:22 Q waves now present Prolonged QT interval now present Sinus rhythm no longer present Electronically Signed On 02-16-2020 8:53:34 CDT by Damien Cain [email or web address] <ELECTRONICALLY SIGNED> By: Damien Cain MD, FAC 02/16/20 0853 2340 2340 Damien Cain MD, [facility] /EPI
--- NOTE | 2020-02-16 14:14 | EKG ---
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: : 1940 Requested By: Shaina Danielle Order Number: [id number] Aaliyah MD: To Arguello Measurements Intervals [place] Rate: 125 P: 199 ND: 122 QRS: -45 QRSD: 151 T: 50 QT: 383 QTc: 553 Interpretive Statements Sinus or ectopic atrial tachycardia RBBB and LAFB Compared to ECG 02/14/2020 23:40:41 Left anterior fascicular block now present Right bundle-branch block now present Atrial fibrillation no longer present Left ventricular hypertrophy no longer present Early repolarization no longer present Q waves no longer present Prolonged QT interval no longer present Electronically Signed On 02-16-2020 14:14:12 CDT by To Arguello [email or web address] <ELECTRONICALLY SIGNED> By: To Arguello MD, [facility] 02/16/20 1414 27 27 To Arguello MD, [facility] /EPI
--- NOTE | 2020-02-16 14:50 | NUR ---
ICU rounds: Covid negative. Moved down from tele yesterday. Pulm and cardiology following. CM spoke with and Ike muñoz. Per family, Pt recently returned from a month long trip to [place] with family, they got home on Thursday, Pt slept most of the day on Thursday and started feeling sick on Thursday. Increased tiredness and weakness. Pt has a walker and cane at home for mobility. No home o2. Hx of [facility]. Per son, Pt has early onset dementia. Goal is home at ok. Pt resides at home with and son. Following.
[2020-02-16 18:14] LABS: CALCIUM 7.7 mg/dL (8.5-10.1); CREATININE 1.4 mg/dL (0.6-1.3); POTASSIUM 3.9 mmol/L (3.5-5.1)
--- NOTE | 2020-02-16 18:43 | NUR ---
PT OUT OF BED, MIN ASSIST x1, SAT IN A CHAIR FOR FEW HOURS. ABLE TO TITRATE O2 DOWN TO 2L/MIN. NO SOB OR PAIN. VSS. ENCOURAGED DIET. INSULIN PER PROTOCOL.
--- NOTE | 2020-02-16 21:32 | NUR ---
DR SPICER AND IR TEAM IN ROOM PLACING [facility] CATH AT BEDSIDE.
[2020-02-17] VITALS (10 sets, daily range): BP systolic 88–140; BP diastolic 43–78
[2020-02-17 04:12] LABS: ABSOLUTE LYMPHOCYTES 0.5 thou/uL (0.8-5.3); ABSOLUTE MONOCYTES 0.3 thou/uL (0.0-1.2); ABSOLUTE NEUTROPHILS 5.3 thou/uL (1.6-8.1); BASOPHILS 0.1 %; HEMATOCRIT 35.9 % (42.0-52.0); HEMOGLOBIN 12.3 gm/dL (14.0-18.0); LYMPHOCYTES 8.5 %; MCH 29.6 pg (26.0-34.0); MCHC 34.2 g/dL (28.0-37.0); MCV 86.6 fL (80.0-100.0); MONOCYTES 4.5 %; MPV 9.5 fl. (7.2-11.1); NUCLEATED RBCS 0 /100WBC; PLATELET COUNT* 85 thou/uL (150-400); POLYS 86.9 %; RBC 4.15 mil/uL (4.50-6.00); RDW-CV 15.3 % (10.5-14.5); WBC 6.1 thou/uL (4.0-11.0)
[2020-02-17 04:58] LABS: ALBUMIN 2.9 g/dL (3.4-5.0); CALCIUM 7.9 mg/dL (8.5-10.1); CREATININE 1.2 mg/dL (0.6-1.3); MAGNESIUM 2.3 mg/dL (1.8-2.4); TOTAL BILIRUBIN 0.7 mg/dL (<0.1-1.0); TOTAL PROTEIN 6.6 g/dL (6.4-8.2)
--- NOTE | 2020-02-17 06:59 | NUR ---
ASSUMED PATIENT CARE AT 1900. ASSESSMENTS COMPLETED CHARTED. CARDIAC MONITORING IN PLACE. DURING SHIFT THIS NURSE DISCOVERED TWO SMALL WOUNDS AND REDNESS ON THE PATIENT'S BUTTOCKS BILATERALLY. PICTURES TAKEN. WHEN ASKED ABOUT THE WOUNDS THE PATIENT STATED THAT, "I'VE HAD THOSE FOR A WHILE. MY HAS BEEN PUTTING MEDICINE ON THEM FOR ME." FALL PRECAUTIONS IN PLACE. BED LOCKED AND IN LOWEST POSITION. CLWR.
--- NOTE | 2020-02-17 12:30 | NUR ---
ICU rounds: Tele status. Respiratory status is better. Anticipate dc to home in 1-2 days. CM to contact to see if she will want HH for Pt when he returns home.
--- NOTE | 2020-02-17 14:55 | 2DMMODE ---
[place] [address] 2 D/M-MODE ECHOCARDIOGRAM Name: NATALI RADFORD Room: [address] IN .R.#: [id number] Admission: 02/14/20 Attend Phys: Shaina Danielle, Discharge: Date of : 36 Date of Service: 02/16/20 1618 Report #: [id number] THIS REPORT FOR: cc: Emma Peters Tammy RNP Liston, Michael J. MD [facility] ~ APPROVED REPORT Study performed: 02/16/2020 15:25:28 EXAM: Comprehensive 2D, Doppler, and color-flow Echocardiogram Patient Location: In-Patient BSA: 1.94 HR: 112 bpm BP: 116/77 mmHg Other Information Study Quality: Good Indications Sepsis Dyspnea Elevated Troponin 2D Dimensions IVSd: 12.40 (7-11mm) LVOT Diam: 19.51 (18-24mm) LVDd: 45.99 mm PWd: 11.14 (7-11mm) Ascending Ao: 31.32 (22-36mm) LVDs: 32.85 (25-40mm) Aortic Root: 29.02 mm Volumes Left Atrial Volume (Systole) LA ESV Index: 33.00 mL/m2 Aortic Valve AoV Peak Bola.: 4.25 m/s AO Peak Gr.: 72.36 mmHg LVOT Max P.23 mmHg AO Mean Gr.: 43.77 mmHg LVOT Mean P.61 mmHg LVOT Max V: 0.55 m/s AO V2 VTI: 102.04 cm LVOT Mean V: 0.36 m/s JESSA (VTI): 0.35 cm2 LVOT V1 VTI: 12.10 [place] [address] 2 D/M-MODE ECHOCARDIOGRAM Name: NATALI RADFORD Room: [address] IN .R.#: [id number] Admission: 02/14/20 Attend Phys: Shaina Danielle, Discharge: Date of : 36 Date of Service: 02/16/20 1618 Report #: [id number] Mitral Valve E/A Ratio: 1.21 MV Decel. Time: 229.99 ms MV E Max Bola.: 0.73 m/s MV PHT: 66.70 ms MVA (PHT): 3.30 cm2 TDI E/Lateral E': 10.43 E/Medial E': 8.11 Medial E' Bola.: 0.09 m/s Lateral E' Bola.: 0.07 m/s Pulmonary Valve PV Peak Bola.: 1.16 m/s PV Peak Gr.: 5.43 mmHg Tricuspid Valve RAP Estimate: 5.00 mmHg TR Peak Gr.: 13.62 mmHg RVSP: 18.62 mmHg PA Pressure: 18.62 mmHg Left Ventricle The left ventricle is normal size. Apical portions of the anterior wall, inferior wall and apex are severely hypokinetic. There is normal left ventricular wall thickness. Left ventricular systolic function is mildly decreased. LVEF is 45-50%. Transmitral Doppler flow pattern suggests impaired LV relaxation. Right Ventricle The right ventricle is normal size. The right ventricular systolic function is normal. Atria The left atrium size is normal. The right atrium size is normal. Aortic Valve Severe aortic valve sclerosis. No aortic regurgitation is present. Severe aortic stenosis. Mitral Valve There is mitral annular calcification. Mild mitral regurgitation. No evidence of mitral valve stenosis. Tricuspid Valve The tricuspid valve is normal in structure. [place] [address] 2 D/M-MODE ECHOCARDIOGRAM Name: NATALI RADFORD Room: [address]#: [id number] Admission: 02/14/20 Attend Phys: Shaina Danielle, Discharge: Date of : 36 Date of Service: 02/16/20 1618 Report #: [id number] Pulmonic Valve The pulmonary valve is normal in structure. There is no pulmonic valvular regurgitation. Great Vessels The aortic root is normal in size. IVC is normal in size and collapses >50% with inspiration. Pericardium There is no pericardial effusion. <Conclusion> The left ventricle is normal size. There is normal left ventricular wall thickness. Left ventricular systolic function is mildly decreased. LVEF is 45-50%. Transmitral Doppler flow pattern suggests impaired LV relaxation. Apical portions of the anterior wall, inferior wall and apex are severely hypokinetic. Severe aortic valve sclerosis. Severe aortic stenosis. Mild mitral regurgitation. Mild tricuspid regurgitation. <ELECTRONICALLY SIGNED> By: Damien Cain MD, FACC 02/16/20 1618 1618 1618 Damien Cain MD, FACC /INF
--- NOTE | 2020-02-17 17:29 | NUR ---
PT RESTING IN BED MOST OF SHIFT. UP WITH SB ASSIST TO BSC. PT REPOSITIONS SELF WELL VOIDING WELL SINCE COREY MCKENZIE THIS AM. NSR ON MONITOR. 02@2L NV. AFEBRILE. FAMILY UPDATED ON PLAN OF CARE
--- NOTE | 2020-02-17 18:39 | NUR ---
PT ORIENTED TO ROOM 210 ON [address]WE[address]. BED LOW AND LOCKED, SIDE RAILS UPX3, CALLL LIGHT IN REACH, TELE APPLIED. INFORM GLADIS THE NURSING AID THAT I PLACED THE BED ALARM ON.
[2020-02-18] VITALS: BP 137/80
[2020-02-18 04:00] VITALS: BP 114/63
--- NOTE | 2020-02-18 05:31 | NUR ---
NO ACUTE CHANGES THROUGHOUT SHIFT. SEE CHARTING FOR MORE INFO.
[2020-02-18 05:36] LABS: ABSOLUTE LYMPHOCYTES 0.9 thou/uL (0.8-5.3); ABSOLUTE MONOCYTES 0.5 thou/uL (0.0-1.2); ABSOLUTE NEUTROPHILS 5.9 thou/uL (1.6-8.1); BASOPHILS 0.1 %; HEMATOCRIT 36.4 % (42.0-52.0); HEMOGLOBIN 12.6 gm/dL (14.0-18.0); LYMPHOCYTES 11.9 %; MCH 29.9 pg (26.0-34.0); MCHC 34.7 g/dL (28.0-37.0); MCV 86.2 fL (80.0-100.0); MONOCYTES 7.2 %; MPV 9.5 fl. (7.2-11.1); NUCLEATED RBCS 0 /100WBC; PLATELET COUNT* 111 thou/uL (150-400); POLYS 80.8 %; RBC 4.22 mil/uL (4.50-6.00); RDW-CV 15.3 % (10.5-14.5); WBC 7.3 thou/uL (4.0-11.0)
[2020-02-18 05:51] LABS: CREATININE 1.4 mg/dL (0.6-1.3); MAGNESIUM 2.1 mg/dL (1.8-2.4); POTASSIUM 3.7 mmol/L (3.5-5.1)
[2020-02-18 07:45] VITALS: BP 138/69
[2020-02-18 12:49] VITALS: BP 132/62
[2020-02-18 17:35] VITALS: BP 131/63
--- NOTE | 2020-02-18 18:26 | NUR ---
RECEIVED REPORT FROM REY CROWELL. ASSUMED CARE OF PT AROUND 0715. PT PLEASANT, AWAKE AND ALERT, ORIENTED TO SELF ONLY. CONFUSED. AM ASSESSMENT AND VITALS COMPLETED CHARTED. CABLE RIGGER IN PLACE CHARTED. MEDS PER EMAR. PT WITH GOOD APPETITE. UP WITH SBA TO BATHROOM TO VOID. NO BM THIS SHIFT. FAMILY MEMEBER VISITED THIS AFTERNOON. PLAN IS FOR PT TO CONTINUE TO RECEIVE ABX IN THE HOPES THAT ENCEPHALOPATHY WILL IMPROVE. PT RESTLESS AND WANTS TO GO HOME. PT CURRENTLY SITTING UP IN BED. CALL LIGHT IS WITHIN REACH. HOURLY ROUNDING PERFORMED. FALL PRECAUTIONS IN PLACE.
[2020-02-18 19:17] VITALS: BP 122/49
[2020-02-19] VITALS: BP 101/49
[2020-02-19 03:52] VITALS: BP 104/65
--- NOTE | 2020-02-19 05:07 | NUR ---
NO ACUTE CHANGES THROUGHOUT SHIFT. VSS. ALL ROUNDINGS COMPLETED, ALL NEEDS MET, FULL ASSESSMENT COMPLETED CHARTED. PT CONTINUES TO BE CONFUSED AND DISORIENTED.
[2020-02-19 09:36] VITALS: BP 133/71
[2020-02-19 12:21] VITALS: BP 119/58
[2020-02-19 16:59] VITALS: BP 113/62
--- NOTE | 2020-02-19 18:58 | NUR ---
RECEIVED REPORT FROM REY CROWELL. ASSUMED CARE OF PT AROUND 0715. PT ALERT, AWAKE, ORIENTED TO SELF AND HOSPITAL. AM ASSESSMENT AND VITALS COMPLETED CHARTED. JUNIOR ASSISTANT MANAGER IN PLACE. PT DENIED PAIN OR DISCOMFORT THIS SHIFT. PT WITH GOOD APPETITE. MUCH LESS IMPULSIVE THIS SHIFT. VISITED FOR MOST OF THE DAY. MEDS PER EMAR. PT HAVING SOME URINARY RETENTION LATE IN THE SHIFT. BLADDER SCAN CHARTED. PT BATHROOM NOW - WILL REASSESS FOR RETENTION. FALL PRECAUTIONS IN PLACE. WCTM.
[2020-02-19 19:45] VITALS: BP 111/43
[2020-02-20 03:00] VITALS: BP 119/63
--- NOTE | 2020-02-20 03:52 | NUR ---
ASSUMED CARE FROM DAY SHIFT PT AWAKE VOIDED CLEAR YELLOW URINE, PO MEDICATION TAKEN DIRECTOR OF BANDS SHOWS NSR . PT RESTING WELL , BLADDER SCAN AT 0345 SHOWS 455ML , PT STOOD TO VOID , PT VOIDED 400ML , PT THEN ASSISTED TO BED.
--- NOTE | 2020-02-20 07:00 | NUR ---
CHANGE OF SHIFT, BEDSIDE REPORT GIVEN PATIENT SEEN AT BEDSIDE, IN BED ASLEEP ASSUMED PATIENT CARE
[2020-02-20 08:00] VITALS: BP 133/68
[2020-02-20 09:43] LABS: CALCIUM 7.7 mg/dL (8.5-10.1)
[2020-02-20 12:13] VITALS: BP 105/57
--- NOTE | 2020-02-20 15:15 | NUR ---
CM spoke with Pt and in room. Plan dc to home tomorrow, per , she does not believe that Pt will have any needs at dc, Pt doing well with therapies. Declined HH. Updated
[2020-02-20 17:08] VITALS: BP 112/73
[2020-02-20 21:00] VITALS: BP 127/63
[2020-02-21] VITALS: BP 126/60
[2020-02-21 04:00] VITALS: BP 101/48
--- NOTE | 2020-02-21 04:57 | NUR ---
No acute event this shift. AOx3, forgetful, easy to redirect. Reorient with time/place. Up SBA to bathroom. Pt dont use call light, provide safety measures/supervision. Bed alarm in placed. Will continue to monitor.
[2020-02-21 07:57] VITALS: BP 108/55
[2020-02-21] MEDS ORDERED: AMOX TR-K CLV1 EAC4 PO (10:20)
[2020-02-21] MEDS ORDERED: DOXYCYCLINE 10100 MG PO (10:20)
[2020-02-21] MEDS ORDERED: ELIQUIS5 MG PO (10:20)
--- NOTE | 2020-02-21 10:22 | NUR ---
PT IS ALERT AND ORIENTED X2-3 CONFUSED FORGETFUL AND IMPULSIVE KEPT ASKING ABOUT HIS COMING TO VISIT AND FORGOT 2 MIN LATER WHEN WE SAID SHE WAS COMING PT IS UP AD CAROL BUT UNSTEADY AT TIMES DOES NOT CALL OUT FOR HELP AFIB ON THE MONITOR NO OXYGEN NEEDED CALL LIGHT IN REACH
[2020-02-21] MEDS ORDERED: METFORMIN HCL500 M3 PO (12:07)
[2020-02-21 12:24] VITALS: BP 112/58
--- NOTE | 2020-02-21 14:40 | NUR ---
PT LEFT WITH AND MEETING UP WITH SON WELL TEACHING GIVEN TO PT AND SON
--- NOTE | 2020-02-24 19:48 | CON ---
[address] [address] CONSULTATION Name: NATALI RADFORD Room: [address] IN M.R.#: [id number] Admission: 02/14/20 Attend Phys: Shaina Danielle MD Discharge: 02/21/20 Date of : 36 Report #: [id number] THIS REPORT FOR: //name// cc: Emma Peters Tammy RNP ~ THIS REPORT FOR: //name// CC: Bill Peters DATE OF SERVICE: 02/15/2020 REQUESTING PHYSICIAN: Alec Johnson MD INDICATION FOR CONSULTATION: Acute respiratory failure. HISTORY OF PRESENT ILLNESS: An 79-year-old gentleman. He is reported to be a lifetime nonsmoker. The patient does have a history of coronary artery disease. The patient also does have moderate aortic stenosis on his previous echocardiogram from 2 years ago. At this time, the patient has presented with a high-grade fever. Temperatures up to 103 degrees Fahrenheit were recorded at home. His temperature was elevated to 39.1 degrees Celsius upon admission. The patient also reports an increase in shortness of breath. He has been coughing. He has brought up small amounts of yellow sputum. The patient, however, does not describe a history of chest pain. The patient may have had a minor nasal discharge; however, upper respiratory complaints are not a major feature of his presentation. The patient does not have swelling of lower extremities. He denies calf pain. He is also not having heartburn at this time. He has also not had any other abdominal complaints including no diarrhea, vomiting, or abdominal pain. He has some joint pains, which are occasional and at baseline. There is no new body aches. I asked him a total of 12 questions for review of systems. The patient's review of systems is negative except as mentioned above. Upon initial presentation, the patient was fluid resuscitated and did receive 3 liters of normal saline. The patient's initial CT as well as chest x-ray do show bilateral ground-glass opacities, which could be secondary to viral as well as atypical pneumonia and increase in pulmonary vascular congestion. The patient's chest x-ray subsequently appears to have worsened this morning due to an increase in pulmonary vascular congestion. The patient since then has received 80 mg of Lasix. The patient's baseline creatinine is 1.0. The creatinine yesterday was 1.4. I just repeated creatinine [place] [id number] CONSULTATION Name: NATALI RADFORD Room: [address] IN ..#: [id number] Admission: 02/14/20 Attend Phys: Shaina Danielle MD Discharge: 02/21/20 Date of : 36 Report #: [id number] increased to 1.9. The patient, however, has had a large amount of urine output with a total of 80 of Lasix that he received earlier today. He has just urinated 700 mL. He had additional urine output during the day as well. The patient at this time does not appear to be in any respiratory distress. He is oxygenating adequately with 3 liters of oxygen in place. PAST MEDICAL HISTORY: Coronary artery disease, coronary stents. There is mention of pulmonary fibrosis on his records; however, I do not see any definite evidence on his previous CAT scans, but he does have a history of sarcoidosis, moderate aortic stenosis. The patient's left ventricular ejection fraction was normal. The right heart pressure was also not reported to be elevated. Atrial fibrillation. Baseline creatinine of 1.0 as discussed above. Also history of diabetes, hypertension, shoulder surgery, left toe surgery, cataracts, right carotid surgery. SOCIAL HISTORY: There is no known history of smoking, ethanol abuse, or drug abuse. CURRENT MEDICATIONS: The list is in [facility], reviewed. HOME MEDICATIONS: List also in [facility] reviewed. ALLERGIES: No known drug allergies. FAMILY HISTORY: There is no pertinent family history. PHYSICAL EXAMINATION: GENERAL: He is alert, awake, and oriented; however, able to provide only a limited history. VITAL SIGNS: He had a heart rate around 100 and a blood pressure of 116/77, oxygenating 93-94% on 3 liters oxygen via nasal cannula. He was tachypneic earlier with respiratory rates up to 35 recorded. The patient's respiratory rate was around 18-20 at the time of my examination. He had a high-grade fever of 39.1 degrees Celsius on initial presentation. He is afebrile now. HEENT: Head is normocephalic and atraumatic. NECK: Does not show raised JVP, asymmetry, mass, or lymph nodes. CHEST: Symmetrical expansion on inspection and palpation. On auscultation, breath sounds are bilaterally equal, decreased. I do not hear any added sounds. HEART: Irregular. There is a soft systolic murmur. ABDOMEN: Soft and nontender. EXTREMITIES: Lower extremities show no edema, no calf tenderness. SKIN: Dry and intact. NEUROLOGICAL: He did move all extremities bilaterally equally and spontaneously with no focal deficit identified. LABORATORY DATA: I reviewed his chest imaging. In summary, on his initial CT, [address] [address] CONSULTATION Name: NATALI RADFORD Room: [address]#: [id number] Admission: 02/14/20 Attend Phys: Shaina Danielle MD Discharge: 02/21/20 Date of : 36 Report #: [id number] he has ground-glass opacities which could be caused by atypical as well as viral pneumonia or mild increase in pulmonary vascular congestion. Compared to the CT done around midnight, there is interval development of worsening pulmonary vascular congestion on the x-ray done this morning. In the background, there are some changes on his previous CTs consistent with sarcoidosis; however, I do not see any definite evidence of pulmonary fibrosis. The patient's baseline creatinine was 1.0. It had increased to 1.4 last night. The patient's creatinine is 1.9 now. He has received fluid resuscitation and then Lasix as described above. The rest of his chemistries are in [facility] and these are reviewed. Magnesium is decreased to 1.5. He does have a drop in platelets to 88. His baseline platelets from last year were 108 as well as 154. His D-dimer was 3.13. We just performed an arterial blood gas, which shows a mild compensated metabolic acidosis. The patient's initial COVID test is negative; however, due to high suspicion, a repeat COVID test was just sent and is pending at this time. ASSESSMENT/PLAN: 1. Acute hypoxemic respiratory failure. While the differential diagnosis will be brought, it appears likely that the patient has a respiratory tract infection due to the ongoing COVID-19 epidemic. COVID-19 is still a likely diagnosis. Finding on the initial CT could also be secondary to atypical pneumonia. The patient subsequently does appear to have developed acute pulmonary edema, but has been diuresed since. 2. Pulmonary infiltrates/suspected COVID-19. See discussion as above. The patient is on ceftriaxone and Zithromax ordered by Dr. Johnson, I agree with this. I also fully agree with treating him with nebulized bronchodilators as well as Solu-Medrol. 3. Acute renal failure. We will follow basic metabolic profiles and chest x-rays and treat accordingly. I would also like to do a renal ultrasound. 4. Sarcoidosis. Discussion as above. We are treating with steroids at this time. 5. Aortic stenosis. The Cardiology service is on the case. 6. Thrombocytopenia. Defer followup to the primary service. It is for this reason that I decided to hold off on Lovenox for now for deep venous thrombosis prophylaxis. I would screen him for deep venous thrombosis by venous Dopplers considering that his D-dimer is significantly elevated. If negative, I recommend placing SCDs. Thanks for this consultation. <ELECTRONICALLY SIGNED> By: Rafy Sim MD 02/24/20 1948 [id number] [id number] Sim MD /nt
== END 2020-02-21 14:41 | disposition home or self-care (01) | DRG 871 ==
LOC: M.ERS 18:30 → M.ICU 21:19 → M.TBA-ER 21:19 → M.2W 21:19 → M.ICU 02-15 20:40 → M.2W 02-17 18:29
PROVIDERS: Emergency Medicine; Family Medicine; Internal Medicine; Internal Medicine Critical Care Medicine; Registered Nurse; ADMIT Internal Medicine; ATTEND Internal Medicine
PROC: 5A09357 Assistance with Respiratory Ventilation, Less than 24 Consecutive Hours, Continuous Positive Airway Pressure (ICD-10-PCS; principal; 2020-02-15)
PROC: 5A09357 Assistance with Respiratory Ventilation, Less than 24 Consecutive Hours, Continuous Positive Airway Pressure (ICD-10-PCS; 2020-02-16)
PROC: 5A09357 Assistance with Respiratory Ventilation, Less than 24 Consecutive Hours, Continuous Positive Airway Pressure (ICD-10-PCS; 2020-02-17)
DX: A41.9 Sepsis, unspecified organism (principal); J96.01 Acute respiratory failure with hypoxia; G93.41 Metabolic encephalopathy; I21.4 Non-ST elevation (NSTEMI) myocardial infarction; J15.6 Pneumonia due to other Gram-negative bacteria; I50.43 Acute on chronic combined systolic (congestive) and diastolic (congestive) heart failure; N17.9 Acute kidney failure, unspecified; J44.9 Chronic obstructive pulmonary disease, unspecified; Z96.612 Presence of left artificial shoulder joint; Z96.611 Presence of right artificial shoulder joint; D86.9 Sarcoidosis, unspecified; Z96.652 Presence of left artificial knee joint; I11.0 Hypertensive heart disease with heart failure; Z96.641 Presence of right artificial hip joint; I25.10 Atherosclerotic heart disease of native coronary artery without angina pectoris; R79.89 Other specified abnormal findings of blood chemistry; I35.0 Nonrheumatic aortic (valve) stenosis; R65.20 Severe sepsis without septic shock; D69.6 Thrombocytopenia, unspecified; I65.29 Occlusion and stenosis of unspecified carotid artery; M19.90 Unspecified osteoarthritis, unspecified site; E11.51 Type 2 diabetes mellitus with diabetic peripheral angiopathy without gangrene; E78.5 Hyperlipidemia, unspecified; I48.0 Paroxysmal atrial fibrillation; Z89.422 Acquired absence of other left toe(s); Z95.5 Presence of coronary angioplasty implant and graft; Z79.01 Long term (current) use of anticoagulants; Z79.82 Long term (current) use of aspirin; Z79.84 Long term (current) use of oral hypoglycemic drugs; Z79.899 Other long term (current) drug therapy; Z03.818 Encounter for observation for suspected exposure to other biological agents ruled out

== ENCOUNTER 2020-03-07 08:18 | Observation (INO) | payer OTHER ==
[2020-03-07] VITALS (18 sets, daily range): BP systolic 93–151; BP diastolic 5–75
[~2020-03-07] VITALS: Ht 175.3 cm; Wt 71.2 kg
--- NOTE | ~2020-03-07 | EKG ---
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: : 1940 Requested By: Bill Munson Order Number: [id number] Reading MD: Measurements Intervals [place] Rate: 62 P: 19 TX: 227 QRS: -28 QRSD: 106 T: 130 QT: 485 QTc: 493 Interpretive Statements Sinus rhythm Borderline prolonged [place] interval Borderline left axis deviation Probable septal infarct, old Abnormal T, consider ischemia, lateral leads Artifact in lead(s) I,III,aVR,aVL,aVF,V1,V2,V3,V4,V5,V6 Compared to ECG 03/07/2020 09:30:49 Sinus bradycardia no longer present Electronically Signed On 03-07-2020 16:11:26 CDT by Bill Munson [email or web address] By: 49 49 Epiphany MD Mayra /PAOLA
[~2020-03-07 08:18] MED LIST changes: +AMOX TR-K CLV1 EAC4 PO; +CALCIUM500 MG PO; +DOXYCYCLINE 10100 MG PO; +ELIQUIS5 MG PO; +METFORMIN HCL500 M3 PO; +ROSUVASTATIN CA20 MG PO; +SINGULAIR 10 MG10 MG PO; +SORINE 80 MG TA80 MG PO; +TESSALON PERLE100 M1 PO; +ZYRTEC 10 MG TA10 MG PO
[2020-03-07 09:00] LABS: HEMATOCRIT 37.5 % (42.0-52.0); HEMOGLOBIN 12.8 gm/dL (14.0-18.0); MCH 29.8 pg (26.0-34.0); MCHC 34.1 g/dL (28.0-37.0); MCV 87.3 fL (80.0-100.0); RBC 4.29 mil/uL (4.50-6.00); RDW-CV 15.6 % (10.5-14.5); WBC 6.4 thou/uL (4.0-11.0)
[2020-03-07 09:57] LABS: INR 1.1; PROTIME 11.4 Seconds (9.20-11.50)
[2020-03-07 10:00] LABS: ANION GAP 4 mmol/L (7-16); BUN 19 mg/dL (7-18); CALCIUM 8.7 mg/dL (8.5-10.1); CHLORIDE 102 mmol/L (98-107); CO2 32 mmol/L (21-32); CREATININE 1.2 mg/dL (0.6-1.3); GLUCOSE 103 mg/dL (70-99); POTASSIUM 4.4 mmol/L (3.5-5.1); SODIUM 138 mmol/L (136-145)
[2020-03-07 10:03] LABS: ALBUMIN 3.3 g/dL (3.4-5.0); ALKALINE PHOSPHATASE 65 U/L (46-116); CHOLESTEROL 121 mg/dL (<200); HDL CHOLESTEROL 41 mg/dL (>40); LDL CHOLESTEROL 51 mg/dL (<100); SGOT 33 U/L (15-37); SGPT 31 U/L (30-65); TOTAL BILIRUBIN 0.6 mg/dL (<0.1-1.0); TOTAL PROTEIN 6.8 g/dL (6.4-8.2); TRIGLYCERIDE 149 mg/dL (<150); VLDL 30 mg/dL (<40)
[2020-03-07 10:04] LABS: SERUM ASSESSMENT Clear
[2020-03-07] MEDS ORDERED: ONE TOUCH ULTR1 EACH (10:08)
--- NOTE | 2020-03-07 10:49 | EKG ---
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: : 1940 Requested By: Bill Munson Order Number: [id number] Reading MD: Bill Munson Measurements Intervals [place] Rate: 51 P: 53 AR: 233 QRS: -19 QRSD: 97 T: 159 QT: 482 QTc: 444 Interpretive Statements Sinus bradycardia Prolonged AR interval Probable LVH with secondary repol abnrm Probable inferior infarct Compared to ECG 02/15/2020 19:28:48 Left anterior fascicular block no longer present Right bundle-branch block no longer present Electronically Signed On 03-07-2020 10:49:17 CDT by Bill Munson [email or web address] <ELECTRONICALLY SIGNED> By: Bill Munson MD, FAC 03/07/20 1049 Bill Munson MD, FAC /EPI
[2020-03-07 11:44] LABS: BE -0.3 mmol/L (-2 to +3); PCO2 37.8 mmHg (35.0-45.0); PO2 74.2 mmHg (75.0-100.0); pH 7.419 (7.340-7.450)
[2020-03-07 11:45] LABS: BE -0.2 mmol/L (-2 to +3); PCO2 VENOUS 39.4 mmHg (41.0-51.0); PO2 VENOUS 33.8 mmHg (35.0-45.0)
--- NOTE | 2020-03-07 16:11 | EKG ---
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: : 1940 Requested By: Bill Munson Order Number: [id number] Reading MD: Bill Munson Measurements Intervals [place] Rate: 62 P: 19 NH: 227 QRS: -28 QRSD: 106 T: 130 QT: 485 QTc: 493 Interpretive Statements Sinus rhythm Borderline prolonged [place] interval Borderline left axis deviation Probable septal infarct, old Abnormal T, consider ischemia, lateral leads Artifact in lead(s) I,III,aVR,aVL,aVF,V1,V2,V3,V4,V5,V6 Compared to ECG 03/07/2020 09:30:49 Sinus bradycardia no longer present Electronically Signed On 03-07-2020 16:11:26 CDT by Bill Munson [email or web address] <ELECTRONICALLY SIGNED> By: Bill Munson MD, [facility] 03/07/20 1611 1450 1450 Bill Munson MD, [facility] /EPI
--- NOTE | 2020-03-07 16:45 | NUR ---
PT TO ROOM 219 VIA CART FROM MILK CONDENSER. CATH SITE CHECKED AT BS. NO BLEEDING. PT INSTRUCTED ON BEDREST. NSR ON MONITOR
[2020-03-08] VITALS: BP 138/85
[2020-03-08 04:00] VITALS: BP 130/93
[2020-03-08 04:49] LABS: HEMATOCRIT 36.1 % (42.0-52.0); HEMOGLOBIN 12.4 gm/dL (14.0-18.0); MCH 29.7 pg (26.0-34.0); MCHC 34.2 g/dL (28.0-37.0); MCV 86.8 fL (80.0-100.0); RBC 4.16 mil/uL (4.50-6.00); RDW-CV 15.8 % (10.5-14.5); WBC 4.7 thou/uL (4.0-11.0)
[2020-03-08 04:56] LABS: INR 1.1; PROTIME 11.2 Seconds (9.20-11.50)
--- NOTE | 2020-03-08 04:58 | NUR ---
PT SLEPT ON AND OFF THIS SHIFT. ASSESSMENT DOCUMENTED. MEDS GIVEN PER E-MAR. IV PATENT, FLUIDS FINISHED INFUSING. CATH SITE HAS SOME SHADOWING, SOFT TO TOUCH. NO REPORTS OF PAIN. FALL PRECAUTIONS IN PLACE. WILL CONTINUE WITH PLAN OF CARE.
[2020-03-08 05:06] LABS: CALCIUM 8.4 mg/dL (8.5-10.1); TROPONIN-I LEVEL 0.54 ng/mL (<0.06)
[2020-03-08 08:08] VITALS: BP 145/72
--- NOTE | 2020-03-08 09:47 | NUR ---
CM SPOKE TO THE PT TO DISCUISS HIS HOME SITUATION, MOBILITY STATUS PRIOR TO ADMISSION, AND TO INFORM OF THE ROLE OF CM. PT A&0. PT INDEPENDENT WITH ADL'S. PT RESIDES AT HOME WITH SPOUSE AND SHE DOES ALL COOKING AND CLEANING IN THE HOME. PT OWNS A WALKER AND A CANE, BUT DOES NOT USE THEM FOR MOBILITY. PT HAS A HX OF HH AND SNF. PT PLANS RETURN HOME AT D/C. NO NEEDS ANTICIPATED. CM WILL REMAIN AVAILABLE TO ASSIST AND FOLLOW NEEDED.
[2020-03-08 09:59] VITALS: BP 145/72
--- NOTE | 2020-03-08 11:11 | NUR ---
ASSUMED PT CARE AT 0730, PT RESTING IN BED, ALERT TO SELF AND SITUATION BUT CONFUSED AND FORGETFUL. PT HAS NO C/O PAIN OR SHORTNESS OF BREATH AND RT GROIN CATH SITE C/D/I W/ SOME BRUISING NOTED BUT NOC SHIFT NURSE STATES IT HASN'T CHANGED SINCE SHE'S HAD HIM. PT GOAL IS TO WORK ON DC TO HOME W/ . AM ASSESSMENT CHARTED, MEDS PER MAR, HOURLY ROUNDING OBSERVED, FALL PRECAUTIONS IN PLACE, CALL LIGHT W/IN REACH, WILL CONTINUE POC.
--- NOTE | 2020-03-08 12:37 | NUR ---
DC ORDERS RECEIVED. DC INSTRUCTIONS, CARE NOTES, SCRIPTS AND F/U APPTS. GIVEN TO PT AND , THEY COMMUNICATE UNDERSTANDING OF DC TEACHING. PT IV WAS REMOVED LAST NIGHT AND INSTRUCTOR ADJUNCT PHARMACY TECHNICIAN REMOVED TODAY. PT DC'D BY WC W/ NURSING STAFF AND W/ ALL PAPERWORK AND BELONGINGS TO OWN PERSONAL VEHICLE AT APPROX 1235.
--- NOTE | 2020-03-08 13:03 | EKG ---
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 : 1940 Requested By: Bill Munson Order Number: [id number] Reading MD: Damien Cain Measurements Intervals [place] Rate: 57 P: -9 IN: 218 QRS: -29 QRSD: 100 T: 123 QT: 468 QTc: 456 Interpretive Statements Sinus rhythm with first-degree AV block LVH, by voltage Nonspecific ST segment depression, consider ischemia Compared to ECG 03/07/2020 14:50:04 Left ventricular hypertrophy now present Early repolarization now present Myocardial infarct finding no longer present T-wave abnormality no longer present Electronically Signed On 03-08-2020 13:02:52 CDT by Damien Cain [email or web address] <ELECTRONICALLY SIGNED> By: Damien Cain MD, [facility] 03/08/20 1302 0647 0647 Damien Cain MD, [facility] /EPI
--- NOTE | 2020-03-08 13:12 | CARD ---
[address] [address] CARDIAC CATH REPORT Name: NATALI RADFORD Room: [address] Eddi M.RGet#: [id number] Admission: 03/07/20 Attend Phys: Bill Munson MD, F Discharge: 03/08/20 Date of : 36 Report #: [id number] THIS REPORT FOR: //name// cc: Emma Peters Tammy RNP ~ APPROVED REPORT Study performed: 03/07/2020 09:44:25 Patient Details Patient Status: OP Room #: The patient is a 80 year-old male Event Personnel Bill Munson System Support Technician, Eddie Fuller RN RN, Ryann Clark RTR Scrub, Bridgette Wells RTR Monitor, Skip Lockhart RTR Monitor Procedures Performed Access- Right Femoral Artery and Right Femoral Vein, Right and Left Heart Cath w/or w/o Coronarie NABIL Place w/wo Plasty Single CIRC Hemostasis w/ Angioseal Indication Dyspnea, Atypical chest pain , Valvular heart disease Risk Factors Coronary Artery Disease, Diabetes Previous Procedures/Diagnoses Previous PCI Admission/Lab Medications/Medications given during procedure Glycoprotein IllbIlla Inhibitors, Heparin Unfract., 0.9% Sodium Chloride IV 75 ml per hr, Oxygen Nasal cannula 2 l per min, Heparin IV 7000 units, Aggrastat IV 7.1 mcg per min Procedure Narrative The patient was brought electively to the Cardiac Catheterization Laboratory and was prepped and draped in a sterile manner. The right femoral was infiltrated with 2% Lidocaine subcutaneous anesthesia. A Right Heart Catheterization was performed with a 7 Fr. Buckfield-Mario catheter and pressure were recorded. Cardiac outputs were obtained by the Anneliese and Thermal Dilution method. A 7Fr x 11[place] [address] CARDIAC CATH REPORT Name: NATALI RADFORD Room: [address]#: [id number] Admission: 03/07/20 Attend Phys: Bill Munson MD, F Discharge: 03/08/20 Date of : 38 Report #: [id number] inserted into the right femoral artery. Coronary angiography was performed using coronary diagnostic catheters. The right coronary system was accessed and visualized with a Diagnostic 6 Fr JR 4 catheter. The left coronary system was accessed and visualized with a Diagnostic 6 Fr JL 4 catheter. The left ventricle was accessed and visualized with a dual lumen pigtail catheter catheter. Left ventricular/Aortic Valve gradient assessed via adalberto catheter with simultaneous pressures. Left ventriculogram was performed in NUNES projection. An aortogram of the Aortic Arch/ Root was performed. Closure device was deployed with a 6 Fr Angioseal. The patient tolerated the procedure well and there were no complications associated with the procedure. There was no hematoma. Right heart pressures were obtained with a Swanz Mario catheter. 7 belarusian sheath was removed at the end of the procedure from the right femoral vein and hemostasis obtained by direct pressure. Intraoperative Conscious Sedation No sedation given. Case start was 11:10 and case end was 12:27. Fluoro Time: 9.7 minutes Dose: DAP 77663 cGycm2 1293.08 mGy Contrast Type and Amount: Visipaque 165 ml Coronary Angiography The patient's coronary anatomy is right dominant. Diagnostic Cath Left Main 0% stenosis LAD 30% proximal stenosis, mid stent with 0% stenosis. Apical lad beyond the stent was 100% chronically occluded and filled faintly by bridging collaterals. Diagonal 1 80% mid stenosis Diagonal 2 small vessel with ostial 95% stenosis Circumflex 60% proximal stenosis OM2 90% proximal stenosis Right Coronary 50% proximal stenosis, 50% mid stenosis, and 60% stenosis of the distal rca Left Ventriculography The left ventricular ejection fraction is estimated to be 35-40%. Left ventricular wall motion abnormalities are present. There is no mitral insufficiency. distal anteroapical akinesis noted. Aortic root injection revealed only trace aortic [place] [address] CARDIAC CATH REPORT Name: NATALI RADFORD Room: [address] M.R.#: [id number] Admission: 03/07/20 Attend Phys: Bill Munson MD, F Discharge: 03/08/20 Date of : 38 Report #: [id number] The right atrial mean pressure is 8 mmHg. The right ventricular pressure is 30/8 mmHg. The pulmonary artery pressure is 30/10 mmHg with a mean of 21 mmHg. The mean pulmonary capillary wedge pressure is 11 mmHg. The aortic pressure is 141/49 mmHg with a mean of 82 mmHg. The left ventricular pressure is 180/10 mmHg with a mean of mmHg. The left ventricular end diastolic pressure is 18 mmHg. Pullback from the left ventricle to the aorta revealed a 55 mm gradient across the aortic valve. PaO2 saturation is 74.20 %. Arterial saturation is 93.20 %. The cardiac output and index were assessed using thermodilution. The cardiac output using thermo method is 3.00 L/min. The cardiac index using thermo method is 1.61 L/min/m2. The peak gradient across the aortic valve is 55 mmHg. The aortic valve area is 0.42 cm2. PCI Technique Lesion Anticoagulation was achieved with Heparin. bolus of iv aggrastat given Percutaneous coronary intervention was performed on the second obtuse marginal branch segment. The lesion stenosis prior to intervention was 90% with FRIEDA 3 flow. A 6F XB 4.0 Guide Catheter was used to engage the left ostium. A IG: BMW 190cm Interventional Guidewire was used to cross the lesion. BALLOON DILATION A Balloon catheter Trek RX 2.5 X 8 was inserted and inflated up to 12.00atm for 17seconds. Repeat angiography revealed the following post-dilatation results: 30% stenois. Additional Inflation: 14.00atm for 19seconds. STENT DEPLOYMENT A drug-eluting stent Letona RX Stent [id number] was inserted and inflated up to 10.00atm for 12seconds. Repeat angiography revealed the following post-stent deployment results: 0% stenosis. Additional Inflation: 10.00atm for 10seconds. Additional Inflation: 10.00atm for 13seconds. Final angiography reveals 0 % stenosis with FRIEDA 3 flow. Conclusion 1. patent stent in the mid lad, and the apical lad continued to be chronically occluded 2. 90% stenosis of the second marginal branch of the circumflex 3. LVEF 35-40% 4. Severe aortic stenosis with a calculated JESSA of 0.4 cm. squared 5. successful placement of a drug eluting stent in the second [address] [place] [address] CARDIAC CATH REPORT Name: NATALI RADFORD Room: [address] Eddi M.R.#: [id number] Admission: 03/07/20 Attend Phys: Bill Munson MD, F Discharge: 03/08/20 Date of : 36 Report #: [id number] marginal artery Recommendations Refer for consideration of TAVR Medications Administered Clopidogrel <ELECTRONICALLY SIGNED> By: Bill Munson MD, FACC 03/08/20 1312 1312 [id number] Munson MD, FACC /INF
--- NOTE | 2020-03-09 14:43 | D ---
[address] [address] DISCHARGE SUMMARY Name: NATALI RADFORD Room: [address] Eddi Black#: [id number] Admission: 03/07/20 Attend Phys: Bill Munson MD, F Discharge: 03/08/20 Date of : 36 Report #: [id number] THIS REPORT FOR: //name// cc: Emma Peters Tammy RNP ~ THIS REPORT FOR: //name// CC: Bill Peters NP DATE OF SERVICE: 03/08/2020 DISCHARGE DIAGNOSES: 1. Aortic stenosis. 2. Coronary artery disease. 3. Paroxysmal atrial fibrillation. 4. Diabetes. 5. Hyperlipidemia. 6. Peripheral arterial disease. CONSULTANTS: None. PROCEDURES: Left heart and right heart catheterization via the right femoral approach with placement of a single drug-eluting stent in the circumflex artery. HISTORY OF PRESENT ILLNESS: The patient is an 80-year-old white male who was brought to the outpatient department to undergo repeat cardiac catheterization. The patient has an extensive past medical history. He has a history of paroxysmal atrial fibrillation and has been on sotalol and Eliquis. He had a previous stent placed in his LAD in June 2018. He was found to have evidence of moderate aortic stenosis at that time. He recently was admitted to [place] after a car ride to [place]. He was admitted with fever and was found to be confused and shortness of breath. He was found to have urinary sepsis. He did have a brief episode of atrial fibrillation while on the monitor in the hospital. He underwent a repeat echocardiogram that showed ejection fraction of 45% with apical akinesia, evidence of severe aortic stenosis. He eventually converted back to sinus rhythm and was discharged. It was recommended that he be considered for TAVR in the future. The patient returned to see my nurse practitioner last week. His confusion had improved. He is not very active at this time. He has had previous peripheral arterial disease with previous toe amputations and lower extremity bypass. He does complain of shortness of breath. He does have occasional chest tightness. No palpitations or bleeding. The patient agreed with referral to [facility] for consideration of TAVR. I recommended repeat cardiac catheterization prior to referral for TAVR. The patient stopped his Eliquis 2 [place] [address] DISCHARGE SUMMARY Name: NATALI RADFORDMOND Room: [address]#: [id number] Admission: 03/07/20 Attend Phys: Bill Munson MD, F Discharge: 03/08/20 Date of : 38 Report #: [id number] and he was started on aspirin in anticipation of the cardiac catheterization. PAST MEDICAL HISTORY: Otherwise significant for carpal tunnel surgery. He has diabetes, hyperlipidemia. He has had previous left popliteal bypass at [facility]. He has had previous bilateral carotid endarterectomies to [place]. He has had shoulder surgery. CURRENT MEDICATIONS: Include Eliquis, which was stopped 2 days ago. He is now back on aspirin, Proscar, Lasix as needed, glipizide, metformin, ramipril, Crestor, sotalol 80 mg twice a day. ALLERGIES: He had no known drug allergies. PHYSICAL EXAMINATION: GENERAL: Elderly male, appeared in no distress. VITAL SIGNS: Blood pressure 118/60, pulse 60. CHEST: Clear to auscultation. CARDIOVASCULAR: Regular rate and rhythm, grade 4 systolic ejection murmur. ABDOMEN: Soft. EXTREMITIES: Had no edema. RADIOLOGICAL DATA: His ECG on admission showed a sinus rhythm, nonspecific ST-segment changes, but no QT prolongation. LABORATORY WORK: Sodium 138, potassium 4.4, BUN 19, creatinine 1.2. His liver function studies were normal. His cholesterol was 121, triglyceride 149, HDL 41, LDL 51. His white blood cell count 4.7, hemoglobin 12.8. HOSPITAL COURSE: The patient was brought to the outpatient department. I performed right and left heart catheterization via the right femoral artery and vein. Results: His right heart catheterization using a Nerstrand-Mario catheter showed a right atrial pressure of 8. Pulmonary pressure 30/10. Right ventricular pressure 30/8. Pulmonary capillary wedge pressure of 8. The peak gradient across the aortic valve was 55 mmHg. Cardiac output was 3.1 liters per minute. Estimated aortic valve area was 0.4 cm2. His ejection fraction was 35-40% with apical akinesia. He was found to have a stent in the mid LAD that had no restenosis. The apical LAD was chronically occluded. The second diagonal branch was a small vessel and had a proximal 95% stenosis. The distal circumflex had a 90% stenosis. The right coronary had a 50% proximal and mid stenosis. The results were discussed with the patient. He had no restenosis stent in the LAD. However, he was noted to have a significant stenosis in the distal circumflex. He was then given heparin and Aggrastat. I placed a single drug-eluting stent in the distal circumflex. He tolerated the procedure well. He was then loaded with Effient 60 mg. Following the procedure, had no further chest pain, shortness of breath, arrhythmias. He remained in sinus rhythm. He had no bleeding from the groin. An Angio-Seal was placed in the right femoral [address] [address] DISCHARGE SUMMARY Name: RADFORDNATALI Room: [address] Eddi Black#: [id number] Admission: 03/07/20 Attend Phys: Bill Munson MD, F Discharge: 03/08/20 Date of : 38 Report #: [id number] artery. Prior to discharge, he is ambulating. Followup lab work included repeat creatinine 1.0. His troponin did increase to 0.54. There were no ECG changes. Followup hemoglobin was 12.4. At the time of discharge, the patient was ambulating with assistance had no further complaints. His vital signs blood pressure 130/90, pulse 60. He is afebrile. He was discharged on his home medications that included Eliquis because of his history of PAF and he was not to resume 5 mg every 12 hours until 24 hours to make sure there was no bleeding from his groin where an Angio-Seal was placed. He was to resume aspirin 81 mg a day, which I would take for 1 month following placement of a stent since the patient will be on Eliquis and Plavix. He was to continue Proscar 5 mg a day, glipizide 10 mg a day for his diabetes. He was not to resume his metformin until 48 hours later on 03/09. He was to continue Singulair for his asthma. Ramipril 2.5 mg a day because of his cardiomyopathy, Crestor 20 mg a day and sotalol 80 mg twice day because of his history of PAF. He was given nitroglycerin to take as needed for chest pain. He takes Lasix for occasional edema and potassium when he does take Lasix tab. I recommend he maintain tight control of his diabetes. He was scheduled to return to see me in the Cardiology Clinic in 6 weeks for followup. He was referred to [facility] for consideration of TAVR. His prognosis is guarded due to his multiple medical problems. He was discharged to return to care of Emma Peters for management of his diabetes. I will continue Eliquis indefinitely. I would continue Plavix 75 mg a day for at least 1 year following placement of drug-eluting stent. <ELECTRONICALLY SIGNED> By: Bill Munson MD, [facility] 03/09/20 1443 1011 [id number] Munson MD, FACC /nt
== END 2020-03-08 12:35 | disposition home or self-care (01) ==
LOC: M.CL 08:18 → M.2W 12:59 → M.TBA-CV 12:59 → M.2W 16:40
PROVIDERS: ADMIT Internal Medicine Cardiovascular Disease; ATTEND Internal Medicine Cardiovascular Disease
DX: I35.0 Nonrheumatic aortic (valve) stenosis (principal); I25.10 Atherosclerotic heart disease of native coronary artery without angina pectoris; E78.5 Hyperlipidemia, unspecified; I48.0 Paroxysmal atrial fibrillation; E11.51 Type 2 diabetes mellitus with diabetic peripheral angiopathy without gangrene

== ENCOUNTER 2020-12-17 12:37 | Emergency (ER) | payer OTHER ==
[~2020-12-17] VITALS: Ht 170.2 cm; Wt 78.5 kg
[~2020-12-17 12:37] MED LIST changes: +ONE TOUCH ULTR1 EACH
[2020-12-17 13:08] LABS: ABSOLUTE EOSINOPHILS 0.2 thou/uL (0.0-0.7); ABSOLUTE LYMPHOCYTES 1.7 thou/uL (0.8-5.3); ABSOLUTE MONOCYTES 0.7 thou/uL (0.0-1.2); BASOPHILS 0.4 %; EOSINOPHILS 2.2 %; HEMATOCRIT 41.4 % (42.0-52.0); HEMOGLOBIN 13.7 gm/dL (14.0-18.0); MCH 28.5 pg (26.0-34.0); MCV 86.3 fL (80.0-100.0); MONOCYTES 9.3 %; MPV 8.2 fl. (7.2-11.1); NUCLEATED RBCS 0 /100WBC; PLATELET COUNT* 129 thou/uL (150-400); POLYS 66.1 %; RDW-CV 15.8 % (10.5-14.5); WBC 7.6 thou/uL (4.0-11.0)
[2020-12-17 13:15] LABS: CALCIUM 9.9 mg/dL (8.5-10.1); CREATININE 1.1 mg/dL (0.6-1.3); POTASSIUM 4.7 mmol/L (3.5-5.1)
[2020-12-17 13:17] LABS: INR 1.1; PROTIME 11.4 Seconds (9.20-11.50)
[2020-12-17 13:19] LABS: ALBUMIN 3.6 g/dL (3.4-5.0); TOTAL BILIRUBIN 0.6 mg/dL (<0.1-1.0); TOTAL PROTEIN 7.9 g/dL (6.4-8.2)
[2020-12-17 15:45] VITALS: BP 154/70
[2020-12-17 15:53] LABS: URINE BILIRUBIN NEGATIVE (Negative); URINE BLOOD NEGATIVE (Negative); URINE CLARITY CLEAR; URINE COLOR YELLOW; URINE GLUCOSE-RANDOM NEGATIVE (Negative); URINE KETONES NEGATIVE (Negative); URINE LEUKOCYTES-REFLEX NEGATIVE (Negative); URINE NITRITE-REFLEX NEGATIVE (Negative); URINE PROTEIN NEGATIVE (Negative); URINE UROBILINOGEN 0.2 E.U./dl (0.2-1.0)
--- NOTE | 2020-12-18 14:06 | EKG ---
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 : 1940 Requested By: Stephan Jordan Order Number: [id number] MD: Bill Munson Measurements Intervals [place] Rate: 77 P: -5 CO: 164 QRS: -21 QRSD: 103 T: 88 QT: 449 QTc: 509 Interpretive Statements Sinus rhythm Borderline left axis deviation Minimal ST depression, lateral leads Prolonged QT interval poor r wave progression Compared to ECG 03/08/2020 06:47:50 Prolonged QT interval now present Left ventricular hypertrophy no longer present Electronically Signed On 12-18-2020 14:05:59 CDT by Bill Munson [email or web address] <ELECTRONICALLY SIGNED> By: Bill Munson MD, [facility] 12/18/20 1405 1515 1515 Bill Munson MD, [facility] /EPI
== END 2020-12-17 15:45 | disposition short-term general hospital (02) ==
LOC: M.ERS 12:37
PROVIDERS: Family Medicine
DX: S73.004A Unspecified dislocation of right hip, initial encounter (principal); S36.039A Unspecified laceration of spleen, initial encounter; S20.211A Contusion of right front wall of thorax, initial encounter; Z20.822 Contact with and (suspected) exposure to COVID-19; J44.9 Chronic obstructive pulmonary disease, unspecified; I48.91 Unspecified atrial fibrillation; E11.9 Type 2 diabetes mellitus without complications; I10 Essential (primary) hypertension; Z96.611 Presence of right artificial shoulder joint; Z96.612 Presence of left artificial shoulder joint; I25.10 Atherosclerotic heart disease of native coronary artery without angina pectoris; Z96.641 Presence of right artificial hip joint; W18.39XA Other fall on same level, initial encounter; Y93.89 Activity, other specified; Y92.89 Other specified places as the place of occurrence of the external cause; Y99.8 Other external cause status